=== PATIENT | female | born 1935 | race Caucasian/White ===

== ENCOUNTER → 2017-11-10 07:44 | Outpatient (CLI) | payer OTHER, SELFPAY ==
--- NOTE | 2017-11-10 | DI.MG.S_ITS ---
BILATERAL DIGITAL SCREENING MAMMOGRAM 3D/2D WITH CAD: 11/10/2017 CLINICAL: Routine screening. Comparison is made to exams dated: 10/22/2016 mammogram, 10/09/2015 mammogram, and 10/03/2014 mammogram - [facility]. There are scattered fibroglandular elements in both breasts. Current study was also evaluated with a Computer Aided Detection (CAD) system. No significant masses, calcifications, or other findings are seen in either breast. There has been no significant interval change. IMPRESSION: NEGATIVE There is no mammographic evidence of malignancy. A 1 year screening mammogram is recommended. This exam was interpreted at Station ID: [id number]. NOTE: For mammograms, a report in lay terms will be sent to the patient. Approximately 15% of breast malignancies will not be visualized mammographically. In the management of a palpable breast mass, a negative mammogram must not discourage biopsy of a clinically suspicious lesion. Electronically Signed By: Eh oliva/arturo:11/10/2017 16:29:05 letter sent: Normal Exam ACR BI-RADS Category 1: Negative 3341F
== END ==
PROVIDERS: Family Provider Family Medicine; PCP Family Medicine; Visit Provider Family Medicine
DX: Z12.31 Encounter for screening mammogram for malignant neoplasm of breast (principal)
CPT/HCPCS: 77063; 77067

== ENCOUNTER → 2017-11-18 07:42 | Outpatient (CLI) | payer OTHER, SELFPAY ==
[2017-11-18 09:04] LABS: Add Manual Diff / Slide Review NO; Basophils Percent Auto 0.7 % (0-2); Hematocrit 40.3 % (36-46); Hemoglobin 13.4 g/dL (12.0-16.0); Lymphocytes Percent Auto 12.3 % (25-40); Mean Corpuscular HGB Conc 33.3 % (30-36); Mean Corpuscular Hemoglobin 29.8 PG (26-34); Mean Corpuscular Volume 89.4 fL (80-100); Monocytes Percent Auto 5.3 % (3-14); Neutrophils Absolute Auto 5000 /uL (3000-5900); Neutrophils Percent Auto 80.7 % (50-75); Platelet Count 197 X10^3/uL (150-400); Red Blood Cell Count 4.51 X10^6/uL (4.0-5.2); Red Cell Distribution Width 13.2 % (11.6-14.8); White Blood Cell Count 6.1 X10^3/uL (4.5-11.0)
[2017-11-18 09:45] LABS: Alanine Aminotransferase 14 IU/L (9-52); Albumin 4.6 g/dL (3.5-5.0); Albumin Globulin Ratio 1.3 (1.0-2.8); Alkaline Phosphatase 63 U/L (38-126); Aspartate Aminotransferase 22 IU/L (14-36); BUN Creatinine Ratio 23.3 (6-22); Bilirubin Total 0.9 mg/dL (0.2-1.3); Blood Urea Nitrogen 14 mg/dL (7-17); Carbon Dioxide 31 mmol/L (22-32); Chloride 101 mmol/L (98-107); Cholesterol 188 mg/dL (140-199); Estimated Glomerular Filt Rate > 60.0 mL/min (>60); Globulin 3.5 g/dL (1.7-4.1); Glucose 89 mg/dL (80-110); HDL Cholesterol 61 mg/dL (40-60); HEMOLYSIS < 15 (0-50); LDL Cholesterol Calculated 88 mg/dL (<100); Potassium 3.4 mmol/L (3.4-5.1); Sodium 144 mmol/L (137-145); Total Protein 8.1 g/dL (6.3-8.2); Triglycerides 197 mg/dL (35-150)
[2017-11-18 10:19] LABS: TSH w/ Reflex to FT4 2.39 uIU/mL (0.47-4.68)
== END ==
PROVIDERS: Family Provider Family Medicine; PCP Family Medicine; Visit Provider Family Medicine
DX: E78.5 Hyperlipidemia, unspecified (principal); K52.832 Lymphocytic colitis; M81.0 Age-related osteoporosis without current pathological fracture; I10 Essential (primary) hypertension
CPT/HCPCS: 36415; 80053; 80061; 84443; 85025

== ENCOUNTER → 2018-01-30 09:29 | Outpatient (CLI) | payer OTHER, SELFPAY ==
--- NOTE | 2018-01-30 11:16 | PM.TREADMILL ---
Cardiac Stress Test Report Referral & Results Date Patient Seen: 01/30/18 Time Patient Seen: 11:17 Requesting provider: Lynn Hanson Rest ECG: Unremarkable Procedure Note: Today following both written and verbal informed consent, the patient was exercised according to a standard Ernst protocol. The patient exercised for a total of 6 min 0 sec achieving a maximum heart rate of 129. Patient's maximum systolic blood pressure was 180. This was an estimated 7.0 MET's. There are no ST segment changes identified Normal heart rate and blood pressure response to exercise Functional aerobic impairment is off the scale by estimated at-25% on the active scale or 125% and normal Rare PACs were identified in the recovery portion of the test Impression: No evidence of ischemia. Excellent exercise capacity. Please note: Actual ECG tracings can be found in the PACS system.
== END ==
PROVIDERS: Family Provider Family Medicine; PCP Family Medicine; Visit Provider Nurse Practitioner Family
DX: R07.9 Chest pain, unspecified (principal)
CPT/HCPCS: 93016; 93017; 93018

== ENCOUNTER 2018-02-03 06:40 | Day surgery (SDC) | payer OTHER, SELFPAY ==
[2018-02-03] MEDS: PROPARACAINE 0.5% OPHTH SOL 2 DROPS EYE-OP (07:20)
[2018-02-03 07:23] VITALS: BP 158/88; PULSE 66; RESP 16; TEMP 36.1; O2SAT 100; BMI 18.0
[2018-02-03] MEDS: CATARACT EYE COMPOUND (10 DROPS/SYRINGE) 3 DROPS EYE-OP (07:26)
--- NOTE | 2018-02-03 08:29 | P.OP.PRE_ITS ---
Pre-operative Note Interval Note Changes: No
--- NOTE | 2018-02-03 08:29 | PM.PREOP ---
Pre-operative Note Interval Note Changes: No
--- NOTE | 2018-02-03 08:30 | P.OP_ITS ---
Operative Date/Time/Diagnoses Pre-op diagnosis: Cataract Right eye Post-op diagnosis: same Procedure & Clinicians Procedure: Cataract Surgery Same procedure as scheduled: Yes Surgeon: Jeff Keane Anesthesia Type: MAC +/- and Sedation Operative Notes Procedure in detail: Patient brought to the operating suite. Tetracaine drops placed in the right eye. Patient was prepped and draped in sterile manner. Wire lid speculum was placed in the eye. Betadine drops were placed on the eye. This was irrigated. Lidocaine jelly was placed on the eye. A paracentesis port was created with a side-port blade. 0.1 mL 1% preservative free lidocaine was injected into the anterior chamber. The anterior chamber was deepened with viscoelastic. 2.6 mm keratome was used to create a temporal clear corneal incision. Cystotome and Utrata forceps were used to create continuous tear capsulorrhexis. Balanced salt solution was used to hydro dissect the nucleus. The phacoemulsification handpiece was inserted and the nucleus was removed using the stop and chop technique. The irrigation aspiration handpiece was inserted and the remaining cortex was removed. Anterior chamber was deepened with viscoelastic. An Garcia ZCB00 intraocular lens with a power of 24.5 was injected into the capsular bag. Irrigation aspiration handpiece was inserted and the remaining viscoelastic was removed. Incision was hydrated with balanced salt solution and found to be leak free with pressure with Weck- Katie sponges. 0.1 mL Vigamox injected anterior chamber. 0.3 mL Kenalog 10 mg was injected subconjunctivally. Lid speculum was removed. The patient left the operating room in excellent condition. Complications: none Condition: stable Disposition: same day surgery
[2018-02-03] MEDS: CHONDROIDTIN/SOD HYALURONATE 1.05 ML SYRINGE INTRAOCULA (08:41)
[2018-02-03] MEDS: TRIAMCINOLONE 50 MG/5 ML VIAL INJ (08:41)
[2018-02-03] MEDS: PHENYLEPHRINE/LIDOCAINE VIAL (OR) 0.2 ML EYE-OP (08:41)
[2018-02-03] MEDS: LIDOCAINE JELLY 2% 5 ML 1 APPLIC TOP (08:41)
[2018-02-03] MEDS: MOXIFLOXACIN OPHTH DROPS 3 ML BOTTLE 2 DROPS INJ (08:41)
[2018-02-03] MEDS: TETRACAINE 0.5% OPHTH DROPS 15 ML 2 DROPS EYE-RIGHT (08:41)
[2018-02-03] MEDS: BALANCED SALT IRRIG SOLN NO.2 500 ML, EPINEPHrine 1 MG IRR (08:42)
[2018-02-03 09:02] VITALS: BP 121/69; PULSE 58; RESP 18; TEMP 36.5; O2SAT 99
[2018-02-03 09:18] VITALS: BP 127/66; PULSE 57; RESP 16; O2SAT 99
--- NOTE | 2018-02-03 09:25 | SUR.PHASEII ---
pt states she understands d/c instructions talked to her ride on the phone. making sure someone will check on her at home. Pt states she understands d/c instructions and also recalled what RN stated and was able to say all the things she needed to do when she gets home. pt had water. Pt wheeled out to car by [employer].
== END 2018-02-03 09:25 | disposition home or self-care (01) ==
PROVIDERS: Family Provider Family Medicine; PCP Family Medicine; Visit Provider Ophthalmology
DX: H25.11 Age-related nuclear cataract, right eye (principal); I10 Essential (primary) hypertension
CPT/HCPCS: J0171; J2250; J3010; J3301

== ENCOUNTER 2018-05-05 07:10 | Day surgery (SDC) | payer OTHER, SELFPAY ==
[2018-05-05 08:02] VITALS: BP 156/80; PULSE 60; RESP 16; TEMP 36.3; O2SAT 100; BMI 17.6
[2018-05-05] MEDS: PROPARACAINE 0.5% OPHTH SOL 2 DROPS EYE-OP (08:11)
[2018-05-05] MEDS: CATARACT EYE COMPOUND (10 DROPS/SYRINGE) 3 DROPS EYE-OP (08:16)
--- NOTE | 2018-05-05 09:09 | P.OP.PRE_ITS ---
Pre-operative Note Interval Note Changes: No
--- NOTE | 2018-05-05 09:09 | PM.PREOP ---
Pre-operative Note Interval Note Changes: No
--- NOTE | 2018-05-05 09:10 | P.OP_ITS ---
Operative Date/Time/Diagnoses Pre-op diagnosis: Nuclear Cataract Left eye Post-op diagnosis: same Procedure & Clinicians Surgeon: Jeff Keane Anesthesia Type: MAC +/- and Sedation Operative Notes Procedure in detail: Patient brought to the operating suite. Tetracaine drops placed in the left eye. Patient was prepped and draped in sterile manner. Wire lid speculum was placed in the eye. Betadine drops were placed on the eye. This was irrigated. Lidocaine jelly was placed on the eye. A paracentesis port was created with a side-port blade. 0.1 mL 1% preservative free lidocaine was injected into the anterior chamber. The anterior chamber was deepened with viscoelastic. 2.6 mm keratome was used to create a temporal clear corneal incision. Cystotome and Utrata forceps were used to create continuous tear capsulorrhexis. Balanced salt solution was used to hydro dissect the nucleus. The phacoemulsification handpiece was inserted and the nucleus was removed using the stop and chop technique. The irrigation aspiration handpiece was inserted and the remaining cortex was removed. Anterior chamber was deepened with viscoelastic. An Garcia ZCB00 intraocular lens with a power of 25.5 was injected into the capsular bag. Irrigation aspiration handpiece was inserted and the remaining viscoelastic was removed. Incision was hydrated with balanced salt solution and found to be leak free with pressure with Weck- Katie sponges. 0.1 mL Vigamox injected anterior chamber. 0.3 mL Kenalog 10 mg was injected subconjunctivally. Lid speculum was removed. The patient left the operating room in excellent condition. Complications: none Condition: stable Disposition: same day surgery
[2018-05-05] MEDS: PHENYLEPHRINE/LIDOCAINE VIAL (OR) 0.2 ML EYE-OP (09:28)
[2018-05-05] MEDS: MOXIFLOXACIN OPHTH DROPS 3 ML BOTTLE 2 DROPS INJ (09:28)
[2018-05-05] MEDS: BALANCED SALT IRRIG SOLN NO.2 500 ML, EPINEPHrine 1 MG IRR (09:29)
[2018-05-05] MEDS: LIDOCAINE JELLY 2% 5 ML 1 APPLIC TOP (09:29)
[2018-05-05] MEDS: TRIAMCINOLONE 50 MG/5 ML VIAL INJ (09:29)
[2018-05-05] MEDS: CHONDROIDTIN/SOD HYALURONATE 1.05 ML SYRINGE INTRAOCULA (09:29)
[2018-05-05] MEDS: TETRACAINE 0.5% OPHTH DROPS 15 ML 2 DROPS EYE-LEFT (09:30)
[2018-05-05 09:41] VITALS: BP 122/71; PULSE 60; RESP 15; TEMP 36.2; O2SAT 100
== END 2018-05-05 09:59 ==
LOC: OR 07:15
PROVIDERS: Family Provider Family Medicine; PCP Family Medicine; Visit Provider Ophthalmology
DX: I10 Essential (primary) hypertension (principal)
CPT/HCPCS: J0171; J2250; J3010; J3301

== ENCOUNTER → 2018-11-11 10:16 | Outpatient (CLI) | payer OTHER, SELFPAY ==
--- NOTE | 2018-11-11 | DI.MG.S_ITS ---
BILATERAL DIGITAL SCREENING MAMMOGRAM 3D/2D WITH CAD: 11/11/2018 CLINICAL: Routine screening. Comparison is made to exams dated: 10/22/2016 mammogram, 11/10/2017 mammogram, and 10/09/2015 mammogram - [facility]. There are scattered fibroglandular elements in both breasts. Current study was also evaluated with a Computer Aided Detection (CAD) system. No significant masses, calcifications, or other findings are seen in either breast. There has been no significant interval change. IMPRESSION: NEGATIVE There is no mammographic evidence of malignancy. A 1 year screening mammogram is recommended. This exam was interpreted at Station ID: [id number]. NOTE: For mammograms, a report in lay terms will be sent to the patient. Approximately 15% of breast malignancies will not be visualized mammographically. In the management of a palpable breast mass, a negative mammogram must not discourage biopsy of a clinically suspicious lesion. Electronically Signed By: Eh oliva/arturo:11/11/2018 11:51:01 letter sent: Normal Exam ACR BI-RADS Category 1: Negative 3341F
== END ==
PROVIDERS: Family Provider Family Medicine; PCP Family Medicine; Visit Provider Family Medicine
DX: Z12.31 Encounter for screening mammogram for malignant neoplasm of breast (principal)
CPT/HCPCS: 77063; 77067

== ENCOUNTER → 2018-12-21 07:09 | Outpatient (CLI) | payer OTHER, SELFPAY ==
[2018-12-21 08:37] LABS: Add Manual Diff / Slide Review NO; Basophils Absolute Auto 100 /uL (0-100); Eosinophils Absolute Auto 200 /uL (0-450); Eosinophils Percent Auto 2.8 % (2-4); Hematocrit 37.7 % (36-46); Hemoglobin 12.5 g/dL (12.0-16.0); Lymphocytes Absolute Auto 900 /uL (1100-4500); Lymphocytes Percent Auto 14.7 % (25-40); Mean Corpuscular HGB Conc 33.1 % (30-36); Mean Corpuscular Hemoglobin 28.9 PG (26-34); Mean Corpuscular Volume 87.3 fL (80-100); Monocytes Absolute Auto 300 /uL (0-900); Monocytes Percent Auto 5.7 % (3-14); Neutrophils Absolute Auto 4500 /uL (1500-7000); Neutrophils Percent Auto 75.8 % (50-75); Platelet Count 207 X10^3/uL (150-400); Red Blood Cell Count 4.31 X10^6/uL (4.0-5.2); Red Cell Distribution Width 14.3 % (11.6-14.8); White Blood Cell Count 5.9 X10^3/uL (4.5-11.0)
[2018-12-21 08:55] LABS: Albumin 4.3 g/dL (3.5-5.0); Albumin Globulin Ratio 1.2 (1.0-2.8); Alkaline Phosphatase 71 U/L (38-126); Aspartate Aminotransferase 25 IU/L (14-36); BUN Creatinine Ratio 18.3 (6-22); Bilirubin Total 0.5 mg/dL (0.2-1.3); Blood Urea Nitrogen 11 mg/dL (7-17); Calcium 10.1 mg/dL (8.4-10.2); Carbon Dioxide 31 mmol/L (22-32); Chloride 101 mmol/L (98-107); Cholesterol 176 mg/dL (140-199); Estimated Glomerular Filt Rate > 60.0 mL/min (>60); Globulin 3.7 g/dL (1.7-4.1); Glucose 97 mg/dL (80-110); HDL Cholesterol 57 mg/dL (40-60); HEMOLYSIS < 15 (0-50); LDL Cholesterol Calculated 90 mg/dL (<100); Sodium 139 mmol/L (137-145); Triglycerides 145 mg/dL (35-150)
[2018-12-21 09:13] LABS: Alanine Aminotransferase < 6 IU/L (9-52)
[2018-12-21 09:24] LABS: TSH w/ Reflex to FT4 3.29 uIU/mL (0.47-4.68)
== END ==
PROVIDERS: Family Provider Family Medicine; PCP Family Medicine; Visit Provider Family Medicine
DX: E78.5 Hyperlipidemia, unspecified (principal); I10 Essential (primary) hypertension
CPT/HCPCS: 36415; 80053; 80061; 84443; 85025

== ENCOUNTER → 2019-11-18 15:33 | Outpatient (CLI) | payer MEDICARE, SELFPAY ==
[2019-11-18 16:54] LABS: NT-proBNP (BNP-Adult 18+) 361 pg/mL (<450)
== END ==
PROVIDERS: Family Provider Family Medicine; PCP Family Medicine; Referring Provider Physician Assistant; Visit Provider Physician Assistant
DX: R60.9 Edema, unspecified (principal)
CPT/HCPCS: 36415; 83880

== ENCOUNTER → 2020-02-24 07:48 | Outpatient (CLI) | payer MEDICARE, SELFPAY ==
--- NOTE | 2020-02-24 | DI.MG.S_ITS ---
BILATERAL DIGITAL SCREENING MAMMOGRAM 3D/2D WITH CAD: 02/24/2020 CLINICAL: Routine screening. Comparison is made to exams dated: 11/11/2018 mammogram, 11/10/2017 mammogram, and 10/22/2016 mammogram - [facility]. There are scattered fibroglandular elements in both breasts. Current study was also evaluated with a Computer Aided Detection (CAD) system. No significant masses, calcifications, or other findings are seen in either breast. There has been no significant interval change. IMPRESSION: NEGATIVE There is no mammographic evidence of malignancy. A 1 year screening mammogram is recommended. This exam was interpreted at Station ID: [id number]. NOTE: For mammograms, a report in lay terms will be sent to the patient. Approximately 15% of breast malignancies will not be visualized mammographically. In the management of a palpable breast mass, a negative mammogram must not discourage biopsy of a clinically suspicious lesion. Electronically Signed By: Ke singletary/arturo:02/24/2020 11:59:44 letter sent: Normal Exam ACR BI-RADS Category 1: Negative 3341F
== END ==
PROVIDERS: Family Provider Family Medicine; PCP Family Medicine; Referring Provider Family Medicine; Visit Provider Family Medicine
DX: Z12.31 Encounter for screening mammogram for malignant neoplasm of breast (principal)
CPT/HCPCS: 77063; 77067

== ENCOUNTER 2020-04-10 17:00 | Emergency (ER) | payer MEDICARE, SELFPAY ==
[2020-04-10] VITALS (11 sets, daily range): BP systolic 118–153; BP diastolic 55–82; PULSE 60–87; RESP 16–37; TEMP 37.3; O2SAT 90–99
--- NOTE | 2020-04-10 17:27 | DI.RAD.S_ITS ---
PROCEDURE: XR CHEST 1V INDICATIONS: fever, cough TECHNIQUE: One view of the chest was acquired. COMPARISON: None. FINDINGS: Surgical changes and devices: None. Lungs and pleura: Lungs are clear. No pleural effusions or pneumothorax. Mediastinum: Mediastinal contours appear normal. Heart size is normal. Bones and chest wall: No suspicious bony lesions. Overlying soft tissues appear unremarkable. IMPRESSION: No acute intracranial abnormality. Dictated by: Sloan Byrd M.D. on 04/10/2020 at 18:02 Approved by: Sloan Byrd M.D. on 04/10/2020 at 18:03
--- NOTE | 2020-04-10 17:35 | ED.FEVER ---
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 and influenza swab were negative for any concerning findings. Please call Dr. Quinones tomorrow to schedule an appointment given your low potassium. Return emergency department for any new or worsening symptoms. Prescriptions: No Action olopatadine [Patanol] 0.1 % drops 1 drop EYE-BOTH BID Qty: 5 RF: 0 estradiol [Estrace] 0.01 % (0.1 mg/gram) cream 1 gram VAG DAILY Qty: 42.5 RF: 1 triamcinolone acetonide 0.1 % cream 1 applictn TOP BID Qty: 30 RF: 0 CA PANTOTHENATE/FOLIC ACID/VIT (MULTIVITAMIN) 1 tab PO BID Qty: 0 RF: 0 CALCIUM CARBONATE (#CALCIUM) 600 mg PO BID Qty: 0 RF: 0 Fish Oil (#FISH OIL) 1 iu PO WEEKLY Qty: 0 RF: 0 Iron (#CHEW-IRON) 27 mg PO DAILY Qty: 0 RF: 0 melatonin 5 MG tablet 5 mg PO HSP PRN (Reason: Sleep) Qty: 0 RF: 0 acetaminophen [Tylenol Extra Strength] 500 MG tablet 500 mg PO PRN PRN (Reason: Pain) Qty: 0 RF: 0 cholecalciferol (vitamin D3) [Vitamin D3] 1,000 UNIT tablet 1,000 unit PO QDAY Qty: 0 RF: 0 loperamide 2 mg tablet 2 mg PO Q2-4H PRN (Reason: Diarrhea) RF: 0 amlodipine 2.5 mg tablet 2.5 mg PO DAILY Qty: 180 RF: 3 lovastatin 40 mg tablet 60 mg PO BEDTIME Qty: 135 RF: 1 hydrochlorothiazide 25 mg tablet 12.5 mg PO DAILY Qty: 30 RF: 3 lisinopril 40 mg tablet 40 mg PO BID Qty: 180 RF: 3 mesalamine 1.2 gram tablet,delayed release (DR/EC) 1.2 g PO TID RF: 0 Referrals: Michele Quinones MD [Primary Care Provider] - <Chandler Crawley DO - Last Filed: 04/10/20 20:47> [facility]: Dr Crawley Co-Sign Statement: I was available for consultation during this patient's emergency department visit. This chart is signed by myself for administrative purposes only. I did not have direct contact with this patient during this visit. They were seen independently by the APC.
[2020-04-10 17:54] LABS: Add Manual Diff / Slide Review NO; Basophils Absolute Auto 0 /uL (0-100); Basophils Percent Auto 0.3 % (0-2); Eosinophils Absolute Auto 300 /uL (0-450); Eosinophils Percent Auto 3.5 % (2-4); Hematocrit 33.7 % (36-46); Hemoglobin 11.2 g/dL (12.0-16.0); Lymphocytes Absolute Auto 500 /uL (1100-4500); Lymphocytes Percent Auto 5.7 % (25-40); Mean Corpuscular HGB Conc 33.4 % (30-36); Mean Corpuscular Hemoglobin 29.4 PG (26-34); Mean Corpuscular Volume 88.1 fL (80-100); Monocytes Absolute Auto 700 /uL (0-900); Monocytes Percent Auto 8.1 % (3-14); Neutrophils Absolute Auto 7100 /uL (1500-7000); Neutrophils Percent Auto 82.4 % (50-75); Platelet Count 194 X10^3/uL (150-400); Red Blood Cell Count 3.82 X10^6/uL (4.0-5.2); Red Cell Distribution Width 13.6 % (11.6-14.8); White Blood Cell Count 8.6 X10^3/uL (4.5-11.0)
[2020-04-10 18:00] LABS: INR 1.2 (0.9-1.3); Prothrombin Time 13.2 SECONDS (10.1-12.7)
[2020-04-10 18:03] LABS: PTT Partial Thromboplastin Tim 31 SECONDS (26.4-36.2)
[2020-04-10 18:05] LABS: Lactate (Lactic Acid) 0.9 mmol/L (0.7-2.1)
[2020-04-10 18:06] LABS: Alanine Aminotransferase 31 IU/L (<35); Albumin 4.1 g/dL (3.5-5.0); Albumin Globulin Ratio 1.1 (1.0-2.8); Alkaline Phosphatase 79 U/L (38-126); Aspartate Aminotransferase 76 IU/L (14-36); BUN Creatinine Ratio 18.3 (6-22); Bilirubin Total 0.9 mg/dL (0.2-1.3); Blood Urea Nitrogen 13 mg/dL (7-17); Calcium 9.5 mg/dL (8.4-10.2); Carbon Dioxide 33 mmol/L (22-32); Chloride 94 mmol/L (98-107); Estimated Glomerular Filt Rate > 60.0 mL/min (>60); Globulin 3.6 g/dL (1.7-4.1); Glucose 113 mg/dL (80-110); HEMOLYSIS < 15 (0-50); Potassium 2.8 mmol/L (3.4-5.1); Sodium 132 mmol/L (137-145); Total Protein 7.7 g/dL (6.3-8.2)
[2020-04-10 18:25] LABS: Influenza A - CEPHEID Flu A NEGATIVE (NEGATIVE); Influenza B - CEPHEID Flu B NEGATIVE (NEGATIVE)
[2020-04-10] MEDS: POTASSIUM CHLORIDE 20 MEQ/15 ML UDC 40 MEQ PO (18:40)
[2020-04-10] MEDS: POTASSIUM CHLORIDE 20 MEQ in SODIUM CHLORIDE 0.9% 250 ML 130 ML IV (18:47)
[2020-04-10 18:49] LABS: COVID19 -Nasal RAPID Negative (Negative); Creatine Kinase 45 U/L (30-135)
[2020-04-10 19:01] LABS: Troponin I < 0.012 ng/mL (0.01-0.034)
[2020-04-10 20:22] LABS: Appearance Urine UA CLEAR; Bilirubin Urine UA NEGATIVE (NEGATIVE); Color Urine UA YELLOW; Glucose Urine UA NEGATIVE (Negative); Ketones Urine UA NEGATIVE (NEGATIVE); Leukocyte Esterase Urine UA TRACE (NEGATIVE); Nitrite Urine UA NEGATIVE (Negative); Occult Blood Urine UA 2+ (Negative); Protein Urine UA NEGATIVE (Negative); Specific Gravity Urine UA <=1.005 (1.000-1.035); Urobilinogen Urine UA 0.2 E.U./dL (0.2)
[2020-04-10 20:24] LABS: pH Urine UA 5.5 (4.5-8.0)
[2020-04-10 20:32] LABS: Bacteria Urine Occasional (0-1); RBC Urine 1-5/HPF (0-5/HPF); Squamous Epithelial Cell Urine 1-5 /HPF (0-5/HPF); WBC Urine 5-10/HPF (0-5/HPF)
[2020-04-10 20:33] LABS: Culture Indicated Urine Specimen Cultured
== END 2020-04-10 21:22 | disposition home or self-care (01) ==
PROVIDERS: Emergency Provider Nurse Practitioner; Family Provider Family Medicine; PCP Family Medicine
DX: E87.6 Hypokalemia (principal); R53.83 Other fatigue; R50.9 Fever, unspecified; R05 Cough
CPT/HCPCS: 36415; 71045; 80053; 81001; 81003; 82550; 83605; 83735; 84484; 85025; 85610; 85730; 87086; 87502; 87635; 93005; 96365; 96366; 99284; J3480

== ENCOUNTER → 2020-04-13 07:55 | Outpatient (CLI) | payer MEDICARE, SELFPAY ==
[2020-04-13 10:25] LABS: BUN Creatinine Ratio 12.5 (6-22); Blood Urea Nitrogen 9 mg/dL (7-17); Calcium 9.6 mg/dL (8.4-10.2); Carbon Dioxide 38 mmol/L (22-32); Chloride 88 mmol/L (98-107); Estimated Glomerular Filt Rate > 60.0 mL/min (>60); Glucose 113 mg/dL (80-110); HEMOLYSIS < 15 (0-50); Potassium 3.2 mmol/L (3.4-5.1); Sodium 131 mmol/L (137-145)
== END ==
PROVIDERS: Family Provider Family Medicine; PCP Family Medicine; Referring Provider Family Medicine; Visit Provider Family Medicine
DX: E87.6 Hypokalemia (principal)
CPT/HCPCS: 36415; 80048

== ENCOUNTER → 2020-04-17 12:28 | Outpatient (CLI) | payer MEDICARE, SELFPAY ==
[2020-04-17 13:58] LABS: BUN Creatinine Ratio 13.9 (6-22); Blood Urea Nitrogen 10 mg/dL (7-17); Calcium 9.6 mg/dL (8.4-10.2); Carbon Dioxide 31 mmol/L (22-32); Chloride 91 mmol/L (98-107); Estimated Glomerular Filt Rate > 60.0 mL/min (>60); Glucose 139 mg/dL (80-110); HEMOLYSIS < 15 (0-50); Potassium 4.5 mmol/L (3.4-5.1); Sodium 129 mmol/L (137-145)
== END ==
PROVIDERS: Family Provider Family Medicine; PCP Family Medicine; Referring Provider Family Medicine; Visit Provider Family Medicine
DX: E87.1 Hypo-osmolality and hyponatremia (principal); E87.6 Hypokalemia
CPT/HCPCS: 36415; 80048

== ENCOUNTER → 2020-04-27 08:23 | Outpatient (CLI) | payer MEDICARE, SELFPAY ==
[2020-04-27 09:56] LABS: BUN Creatinine Ratio 13.1 (6-22); Blood Urea Nitrogen 11 mg/dL (7-17); Calcium 10.1 mg/dL (8.4-10.2); Carbon Dioxide 32 mmol/L (22-32); Chloride 88 mmol/L (98-107); Estimated Glomerular Filt Rate > 60.0 mL/min (>60); Glucose 122 mg/dL (80-110); HEMOLYSIS < 15 (0-50); Potassium 5.3 mmol/L (3.4-5.1); Sodium 124 mmol/L (137-145)
== END ==
PROVIDERS: Family Provider Family Medicine; PCP Family Medicine; Referring Provider Family Medicine; Visit Provider Family Medicine
DX: E87.1 Hypo-osmolality and hyponatremia (principal); E87.6 Hypokalemia
CPT/HCPCS: 36415; 80048

== ENCOUNTER → 2020-05-11 09:22 | Outpatient (CLI) | payer MEDICARE, SELFPAY ==
[2020-05-11 10:30] LABS: BUN Creatinine Ratio 16.9 (6-22); Blood Urea Nitrogen 13 mg/dL (7-17); Calcium 10.3 mg/dL (8.4-10.2); Carbon Dioxide 31 mmol/L (22-32); Chloride 91 mmol/L (98-107); Estimated Glomerular Filt Rate > 60.0 mL/min (>60); Glucose 93 mg/dL (80-110); HEMOLYSIS < 15 (0-50); Potassium 4.2 mmol/L (3.4-5.1); Sodium 127 mmol/L (137-145)
== END ==
PROVIDERS: Family Provider Family Medicine; PCP Family Medicine; Referring Provider Family Medicine; Visit Provider Family Medicine
DX: E87.1 Hypo-osmolality and hyponatremia (principal); E87.6 Hypokalemia
CPT/HCPCS: 36415; 80048

== ENCOUNTER → 2020-06-08 07:45 | Outpatient (CLI) | payer MEDICARE, SELFPAY ==
[2020-06-08 08:51] LABS: BUN Creatinine Ratio 19.4 (6-22); Blood Urea Nitrogen 14 mg/dL (7-17); Calcium 9.6 mg/dL (8.4-10.2); Carbon Dioxide 35 mmol/L (22-32); Chloride 99 mmol/L (98-107); Estimated Glomerular Filt Rate > 60.0 mL/min (>60); Glucose 103 mg/dL (80-110); HEMOLYSIS < 15 (0-50); Sodium 137 mmol/L (137-145)
[2020-06-08 09:52] LABS: Potassium 2.6 mmol/L (3.4-5.1)
== END ==
PROVIDERS: Family Provider Family Medicine; PCP Family Medicine; Referring Provider Family Medicine; Visit Provider Family Medicine
DX: E87.1 Hypo-osmolality and hyponatremia (principal); E87.6 Hypokalemia
CPT/HCPCS: 36415; 80048

== ENCOUNTER → 2020-06-10 08:04 | Outpatient (CLI) | payer MEDICARE, SELFPAY ==
[2020-06-10 09:49] LABS: BUN Creatinine Ratio 19.7 (6-22); Blood Urea Nitrogen 13 mg/dL (7-17); Calcium 9.7 mg/dL (8.4-10.2); Carbon Dioxide 31 mmol/L (22-32); Chloride 103 mmol/L (98-107); Estimated Glomerular Filt Rate > 60.0 mL/min (>60); Glucose 94 mg/dL (80-110); HEMOLYSIS < 15 (0-50); Sodium 138 mmol/L (137-145)
== END ==
PROVIDERS: Family Provider Family Medicine; PCP Family Medicine; Referring Provider Family Medicine; Visit Provider Family Medicine
DX: E87.1 Hypo-osmolality and hyponatremia (principal); E87.6 Hypokalemia
CPT/HCPCS: 36415; 80048

== ENCOUNTER → 2020-06-20 13:09 | Outpatient (CLI) | payer MEDICARE, SELFPAY ==
[2020-06-20] MEDS: COVID-19 VACC #1, MRNA(MOD) 100 MCG/0.5 ML VIAL IM (13:19)
== END ==
PROVIDERS: Family Provider Family Medicine; PCP Family Medicine; Visit Provider Internal Medicine
DX: Z23 Encounter for immunization (principal)
CPT/HCPCS: 0011A; 91301

== ENCOUNTER → 2020-07-12 10:43 | Outpatient (CLI) | payer MEDICARE, SELFPAY ==
[2020-07-12 12:03] LABS: BUN Creatinine Ratio 16.7 (6-22); Blood Urea Nitrogen 16 mg/dL (7-17); Calcium 10.4 mg/dL (8.4-10.2); Carbon Dioxide 30 mmol/L (22-32); Chloride 98 mmol/L (98-107); Estimated Glomerular Filt Rate 55.1 mL/min (>60); Glucose 100 mg/dL (80-110); HEMOLYSIS < 15 (0-50); Potassium 4.8 mmol/L (3.4-5.1); Sodium 134 mmol/L (137-145)
== END ==
PROVIDERS: Family Provider Family Medicine; PCP Family Medicine; Referring Provider Family Medicine; Visit Provider Family Medicine
DX: E87.1 Hypo-osmolality and hyponatremia (principal); E87.6 Hypokalemia
CPT/HCPCS: 36415; 80048

== ENCOUNTER → 2020-07-18 12:42 | Outpatient (CLI) | payer MEDICARE, SELFPAY ==
[2020-07-18] MEDS: COVID-19 VACC #2, MRNA(MOD) 100 MCG/0.5 ML VIAL IM (12:58)
== END ==
PROVIDERS: Family Provider Family Medicine; PCP Family Medicine; Visit Provider Internal Medicine
DX: Z23 Encounter for immunization (principal)
CPT/HCPCS: 0012A; 91301

== ENCOUNTER → 2020-08-09 08:08 | Outpatient (CLI) | payer MEDICARE, SELFPAY ==
[2020-08-09 09:23] LABS: BUN Creatinine Ratio 21.1 (6-22); Blood Urea Nitrogen 19 mg/dL (7-17); Calcium 10.1 mg/dL (8.4-10.2); Carbon Dioxide 27 mmol/L (22-32); Chloride 101 mmol/L (98-107); Estimated Glomerular Filt Rate 59.4 mL/min (>60); Glucose 92 mg/dL (80-110); HEMOLYSIS < 15 (0-50); Potassium 4.3 mmol/L (3.4-5.1); Sodium 135 mmol/L (137-145)
== END ==
PROVIDERS: Family Provider Family Medicine; PCP Family Medicine; Referring Provider Family Medicine; Visit Provider Family Medicine
DX: E87.1 Hypo-osmolality and hyponatremia (principal); E87.6 Hypokalemia
CPT/HCPCS: 36415; 80048

== ENCOUNTER → 2020-10-04 08:04 | Outpatient (CLI) | payer MEDICARE, SELFPAY ==
[2020-10-04 09:55] LABS: BUN Creatinine Ratio 14.9 (6-22); Blood Urea Nitrogen 11 mg/dL (7-17); Calcium 10.2 mg/dL (8.4-10.2); Carbon Dioxide 31 mmol/L (22-32); Chloride 92 mmol/L (98-107); Estimated Glomerular Filt Rate > 60.0 mL/min (>60); Glucose 85 mg/dL (80-110); HEMOLYSIS < 15 (0-50); Potassium 4.1 mmol/L (3.4-5.1); Sodium 130 mmol/L (137-145)
== END ==
PROVIDERS: Family Provider Family Medicine; PCP Family Medicine; Referring Provider Family Medicine; Visit Provider Family Medicine
DX: E87.1 Hypo-osmolality and hyponatremia (principal); E87.6 Hypokalemia
CPT/HCPCS: 36415; 80048

== ENCOUNTER → 2020-11-30 07:53 | Outpatient (CLI) | payer MEDICARE, SELFPAY ==
[2020-11-30 09:20] LABS: BUN Creatinine Ratio 18.8 (6-22); Blood Urea Nitrogen 13 mg/dL (7-17); Calcium 10.3 mg/dL (8.4-10.2); Carbon Dioxide 35 mmol/L (22-32); Chloride 93 mmol/L (98-107); Estimated Glomerular Filt Rate > 60.0 mL/min (>60); Glucose 97 mg/dL (80-110); HEMOLYSIS < 15 (0-50); Potassium 3.2 mmol/L (3.4-5.1); Sodium 134 mmol/L (137-145)
== END ==
PROVIDERS: Family Provider Family Medicine; PCP Family Medicine; Referring Provider Family Medicine; Visit Provider Family Medicine
DX: E87.1 Hypo-osmolality and hyponatremia (principal)
CPT/HCPCS: 36415; 80048

== ENCOUNTER → 2020-12-15 09:21 | Outpatient (CLI) | payer MEDICARE, SELFPAY ==
--- NOTE | 2020-12-15 09:23 | DI.US.S_ITS ---
PROCEDURE: US RENAL COMPLETE INDICATIONS: POSSIBLE KIDNEY MASS VS HYDRONEPHROSIS TECHNIQUE: Real-time scanning was performed of the kidneys and bladder, with image documentation. COMPARISON: [facility], CT, KIDNEY/ URETER/BLADDER, 01/03/2017, 9:07. [facility], US, RENAL COMPLETE, 12/18/2016, 13:24. FINDINGS: Kidneys: Kidneys are normal in size. Right kidney measures 10.2 cm long; left kidney measures 11.2 cm long. Right renal cortical thickness is 1.4 cm; left renal cortical thickness is 1.2 cm. Renal cortical echotexture is normal. No hydronephrosis or nephrolithiasis. No suspicious solid mass lesions. Bladder: Pre-void bladder volume is 319 mL. Post-void residual is 15 mL. Pre-void images demonstrate no intraluminal masses or stones. On pre-void images, bilateral ureteral jets are noted with color Doppler interrogation. (Of note, ureteral jets may not be detectable in up to 25% of cases due to insufficient differences in specific gravity between ureteral and bladder urine). Miscellaneous: No free pelvic fluid. IMPRESSION: No hydronephrosis or nephrolithiasis found, no mass lesion identified. Normal bladder function. Dictated by: Yrn Angeles M.D. on 12/15/2020 at 11:10 Approved by: Yrn Angeles M.D. on 12/15/2020 at 11:11
== END ==
PROVIDERS: Family Provider Family Medicine; PCP Family Medicine; Referring Provider Family Medicine; Visit Provider Family Medicine
DX: E87.1 Hypo-osmolality and hyponatremia (principal); E87.6 Hypokalemia; I10 Essential (primary) hypertension
CPT/HCPCS: 76770

== ENCOUNTER → 2021-01-01 10:20 | Outpatient (CLI) | payer MEDICARE, SELFPAY | PROVIDERS: Family Provider Family Medicine; PCP Family Medicine; Referring Provider Internal Medicine Cardiovascular Disease; Visit Provider Family Medicine | DX: E87.1 Hypo-osmolality and hyponatremia (principal); E87.6 Hypokalemia; I10 Essential (primary) hypertension; R42 Dizziness and giddiness | CPT/HCPCS: 93005 ==

== ENCOUNTER → 2021-01-08 07:09 | Outpatient (CLI) | payer MEDICARE, SELFPAY ==
--- NOTE | 2021-01-08 07:10 | DI.ECHO.S_ITS ---
[facility] +---------+ : : [address] [place] [address] : : : : [id number] : : : : Phone: [phone]+ Echocardiogram Report + + :Name: TIFFANY LAKHANI Study Date: 01/08/2021 Height: 67 in : :[facility] ReadingLocation: Weight: 125 lb : : Gender: Female BSA: 1.7 m2 : :: 1935 Age: 85 yrs BP: 155/88 mmHg: :Reason For Study: PRE CARDIAC APPOINTMENT, HYPERTENSION : :Ordering Physician: SCOT VANEGASPerformed By: Aleah Mayo : :Referring: SHADE VANEGAS : + + Interpretation Summary 1) Normal left ventricular size, thickness, wall motion, and systolic function (EF 55-60%). 2) Normal right ventricular size and function. 3) No significant valvular abnormalities. 4) No prior Echo available for comparison. Procedure: A two-dimensional transthoracic echocardiogram with color flow and Doppler was performed. The study quality was technically adequate. There is no prior echocardiogram noted for this patient. The patient was in sinus rhythm with heart rates between 61-67 bpm during the exam. Left Ventricle: The left ventricle is normal in size and wall thickness. The ejection fraction is estimated to be 55-60%. Left ventricular systolic function appears normal without focal wall motion abnormalities. Right Ventricle: The right ventricle is normal in size and function. Atria: The left atrial size is normal. Right atrial size is normal. There is no Doppler evidence for an interatrial shunt. Mitral Valve: The mitral valve is normal in structure and function. There is mild mitral regurgitation. Aortic Valve: The aortic valve is trileaflet. The aortic valve opens well. There is no aortic valve stenosis. No aortic regurgitation is present. Tricuspid Valve: The tricuspid valve is normal in structure and function. There is trace tricuspid regurgitation. The right ventricular systolic pressure is estimated to be at least 20 mmHg based on an estimated right atrial pressure of 3 mm Hg. Pulmonic Valve: The pulmonic valve leaflets are thin and pliable; valve motion is normal. There is trace pulmonic regurgitation. Great Vessels: The aortic root is normal size. The dimensions of the ascending aorta are normal. The IVC is of normal diameter and collapses greater than 50% with a sniff. This suggests a low right atrial pressure of 3 mm Hg. Pericardium/ Pleura There is no pericardial effusion. There is no pleural effusion. MMode/2D Measurements & Calculations LVIDd: 4.6 cm LVOT diam: 2.0 cm LVIDs: 3.1 cm Ao root diam: 2.6 cm FS: 34.2 % asc Aorta Diam: 3.3 cm IVSd: 0.64 cm Ao Arch Diam (Prox Trans): 2.4 cm LVPWd: 0.78 cm LV hickey. diameter/BSA (cm/m^2): 2.8 LV sys. diameter/BSA (cm/m^2): 1.8 LA A2 area: 16.8 cm2 RA long axis: 4.4 cm LA A4 area: 16.7 cm2 RA area: 11.3 cm2 LA length (vol): 5.2 cm RA vol: 24.7 ml LA vol: 46.1 ml RA : 14.9 ml/m2 LA vol index: 27.8 ml/m2 IVC diam: 1.3 cm RVD1 (basal): 3.3 cm TAPSE: 1.9 cm Doppler Measurements & Calculations Ao V2 max: 129.8 cm/sec LVOT Max Fredo: 86.9 cm/sec Ao V2 mean: 90.9 cm/sec LV V1 max P.0 mmHg Ao max P.7 mmHg LV V1 VTI: 20.2 cm Ao mean P.7 mmHg LUAN(I,D): 2.5 cm2 Ao V2 VTI: 25.2 cm LUAN(V,D): 2.1 cm2 sev ratio: 0.80 LUAN indexed to BSA (cm^2/m^2): 1.5 MV E max fredo: 49.9 cm/sec TR max fredo: 206.1 cm/sec MV A max fredo: 72.3 cm/sec TR max P.0 mmHg MV E/A: 0.69 PA V2 max: 93.0 cm/sec Med Peak E' Fredo: 5.3 cm/sec PA V2 mean: 63.5 cm/sec E/E' med: 9.4 PA mean P.8 mmHg Lat Peak E' Fredo: 4.5 cm/sec PA pr(Accel): 34.5 mmHg E/E' lat: 11.2 E/e' average: 10.3 MV dec time: 0.35 sec SV(LVOT): 64.2 ml Reading Physician:06:22 PM
== END ==
PROVIDERS: Family Provider Family Medicine; PCP Family Medicine; Referring Provider Family Medicine; Visit Provider Family Medicine
DX: I34.0 Nonrheumatic mitral (valve) insufficiency (principal); R42 Dizziness and giddiness; E87.1 Hypo-osmolality and hyponatremia; E87.6 Hypokalemia; I10 Essential (primary) hypertension
CPT/HCPCS: 93306

== ENCOUNTER → 2021-01-23 10:48 | Outpatient (CLI) | payer MEDICARE, SELFPAY ==
[2021-01-23 12:13] LABS: BUN Creatinine Ratio 22.1 (6-22); Blood Urea Nitrogen 15 mg/dL (7-17); Calcium 10.5 mg/dL (8.4-10.2); Carbon Dioxide 30 mmol/L (22-32); Chloride 97 mmol/L (98-107); Estimated Glomerular Filt Rate > 60.0 mL/min (>60); Glucose 97 mg/dL (80-110); HEMOLYSIS < 15 (0-50); Potassium 4.6 mmol/L (3.4-5.1); Sodium 134 mmol/L (137-145)
== END ==
PROVIDERS: Family Provider Family Medicine; PCP Family Medicine; Referring Provider Family Medicine; Visit Provider Family Medicine
DX: E87.1 Hypo-osmolality and hyponatremia (principal); E87.6 Hypokalemia
CPT/HCPCS: 36415; 80048

== ENCOUNTER → 2021-02-20 16:30 | Outpatient (CLI) | payer MEDICARE, SELFPAY ==
[2021-02-20 17:00] LABS: Add Manual Diff / Slide Review NO; Basophils Absolute Auto 0 /uL (0-100); Basophils Percent Auto 0.5 % (0-2); Eosinophils Absolute Auto 100 /uL (0-450); Eosinophils Percent Auto 0.7 % (2-4); Hemoglobin 12.4 g/dL (12.0-16.0); Lymphocytes Absolute Auto 900 /uL (1100-4500); Lymphocytes Percent Auto 12.6 % (25-40); Mean Corpuscular HGB Conc 33.4 % (30-36); Mean Corpuscular Hemoglobin 29.7 PG (26-34); Monocytes Absolute Auto 600 /uL (0-900); Monocytes Percent Auto 8.1 % (3-14); Neutrophils Absolute Auto 5700 /uL (1500-7000); Neutrophils Percent Auto 78.1 % (50-75); Platelet Count 260 X10^3/uL (150-400); Red Blood Cell Count 4.15 X10^6/uL (4.0-5.2); Red Cell Distribution Width 13.6 % (11.6-14.8); White Blood Cell Count 7.3 X10^3/uL (4.5-11.0)
[2021-02-20 17:38] LABS: HEMOLYSIS < 15 (0-50); Iron 65 ug/dL (37-170)
[2021-02-20 17:49] LABS: Percent Iron Saturation 21 % (15-50); Total Iron Binding Capacity 310 ug/dL (265-497); Transferrin 301 mg/dL (206-381)
== END ==
PROVIDERS: Family Provider Family Medicine; PCP Family Medicine; Referring Provider Physician Assistant; Visit Provider Physician Assistant
DX: D64.9 Anemia, unspecified (principal); K22.0 Achalasia of cardia; K52.832 Lymphocytic colitis
CPT/HCPCS: 36415; 83540; 83550; 85025

== ENCOUNTER 2021-03-12 07:37 | Emergency (ER) | payer MEDICARE, SELFPAY ==
[2021-03-12] VITALS (13 sets, daily range): BP systolic 142–166; BP diastolic 60–75; PULSE 57–73; RESP 11–41; TEMP 37.2; O2SAT 67–100; BMI 20.1
--- NOTE | 2021-03-12 08:23 | DI.RAD.S_ITS ---
PROCEDURE: XR CHEST 1V INDICATIONS: chest pain TECHNIQUE: One view of the chest was acquired. COMPARISON: , CR, XR CHEST 1V, 04/10/2020, 17:42. FINDINGS: Surgical changes and devices: None. Lungs and pleura: Lungs are clear. No pleural effusions or pneumothorax. Mediastinum: Mediastinal contours appear normal. Heart size is normal. Bones and chest wall: No suspicious bony lesions. Overlying soft tissues appear unremarkable. IMPRESSION: No acute cardiopulmonary disease process. Dictated by: Bev Pretty MD, PhD on 03/12/2021 at 9:09 Approved by: Bev Pretty MD, PhD on 03/12/2021 at 9:10
[2021-03-12 08:31] LABS: Add Manual Diff / Slide Review NO; Basophils Absolute Auto 0 /uL (0-100); Basophils Percent Auto 0.5 % (0-2); Eosinophils Absolute Auto 0 /uL (0-450); Eosinophils Percent Auto 0.5 % (2-4); Lymphocytes Absolute Auto 600 /uL (1100-4500); Lymphocytes Percent Auto 11.1 % (25-40); Mean Corpuscular HGB Conc 33.2 % (30-36); Mean Corpuscular Hemoglobin 29.6 PG (26-34); Mean Corpuscular Volume 88.9 fL (80-100); Monocytes Absolute Auto 400 /uL (0-900); Monocytes Percent Auto 7.2 % (3-14); Neutrophils Absolute Auto 4500 /uL (1500-7000); Neutrophils Percent Auto 80.7 % (50-75); Platelet Count 231 X10^3/uL (150-400); Red Blood Cell Count 4.05 X10^6/uL (4.0-5.2); Red Cell Distribution Width 13.5 % (11.6-14.8); White Blood Cell Count 5.5 X10^3/uL (4.5-11.0)
[2021-03-12 08:36] LABS: Alanine Aminotransferase 9 IU/L (<35); Albumin 4.8 g/dL (3.5-5.0); Albumin Globulin Ratio 1.5 (1.0-2.8); Alkaline Phosphatase 54 U/L (38-126); Aspartate Aminotransferase 32 IU/L (14-36); BUN Creatinine Ratio 16.4 (6-22); Bilirubin Total 0.6 mg/dL (0.2-1.3); Blood Urea Nitrogen 12 mg/dL (7-17); Calcium 10.1 mg/dL (8.4-10.2); Carbon Dioxide 29 mmol/L (22-32); Chloride 97 mmol/L (98-107); Creatine Kinase 43 U/L (30-135); Estimated Glomerular Filt Rate > 60.0 mL/min (>60); Globulin 3.1 g/dL (1.7-4.1); Glucose 92 mg/dL (80-110); HEMOLYSIS 37 (0-50); Lipase 53 U/L (23-300); Magnesium 2.2 mg/dL (1.6-2.3); Potassium 4.5 mmol/L (3.4-5.1); Sodium 135 mmol/L (137-145); Total Protein 7.9 g/dL (6.3-8.2)
--- NOTE | 2021-03-12 08:41 | DI.CT.S_ITS ---
PROCEDURE: CT HEAD/BRAIN WO CON INDICATIONS: dizzy TECHNIQUE: Noncontrast 4.5 mm thick angled axial sections acquired from the foramen magnum to the vertex, with coronal and sagittal reformats. For radiation dose reduction, the following was used: automated exposure control, adjustment of mA and/or kV according to patient size. COMPARISON: None. FINDINGS: Image quality: Excellent. CSF spaces: Basal cisterns are patent. No extra-axial fluid collections. The ventricles are symmetric in size and shape. Brain: No intracranial bleeds. 8 millimeter calcified left parietal convexity extra-axial mass is likely represents a meningioma. There is cerebral volume loss for age, with resultant ventricular and sulcal prominence. There are periventricular and deep white matter chronic small vessel ischemic changes. There is intracranial internal carotid artery atherosclerosis. Skull and face: Calvarium and visualized facial bones appear intact, without suspicious lesions. Sinuses: Visualized sinuses and mastoids are clear. IMPRESSION: No acute intracranial disease process. Dictated by: Bev Pretty MD, PhD on 03/12/2021 at 9:07 Approved by: Bev Pretty MD, PhD on 03/12/2021 at 9:09
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
[2021-03-12 08:48] LABS: Troponin I < 0.012 ng/mL (0.01-0.034)
[2021-03-12] MEDS: SODIUM CHLORIDE 0.9% 1,000 ML 1000 ML IV (10:25)
--- NOTE | 2021-03-12 11:16 | PC.NURSE ---
Obtained patient care. Up for discharge.
== END 2021-03-12 11:20 | disposition home or self-care (01) ==
PROVIDERS: Emergency Provider Emergency Medicine; Family Provider Family Medicine; PCP Family Medicine
DX: I10 Essential (primary) hypertension (principal); R42 Dizziness and giddiness; Z87.891 Personal history of nicotine dependence
CPT/HCPCS: 70450; 71045; 80053; 82550; 83690; 83735; 84484; 85025; 93005; 93010; 96360; 99283; 99284

== ENCOUNTER → 2021-03-21 12:25 | Outpatient (CLI) | payer MEDICARE, SELFPAY ==
--- NOTE | 2021-03-21 12:26 | DI.US.S_ITS ---
PROCEDURE: US CAROTID DOPPLER BI INDICATIONS: DIZZINESS TECHNIQUE: Color and pulse Doppler interrogation was performed of both carotid systems, with image documentation and velocity measurements. COMPARISON: None. FINDINGS: Stenosis calculations are based on SRU (Society of Radiologists in Ultrasound) criteria. Right side: Brachial blood pressure: 118/identified mm Hg. Common carotid artery peak systolic velocity: 79 cm/sec. Internal carotid artery peak systolic velocity: 64 cm/sec. Internal carotid artery end diastolic velocity: 23 cm/sec. External carotid artery peak systolic velocity: 105 cm/sec. ICA/CCA peak systolic ratio: 0.8 . Navarrete scale imaging description: Calcified plaques at the bifurcation. Percent internal carotid artery stenosis: Less than 50%. Vertebral artery: Flow direction is antegrade. Left side: Brachial blood pressure: 117/73 mm Hg. Common carotid artery peak systolic velocity: 87 cm/sec. Internal carotid artery peak systolic velocity: 72 cm/sec. Internal carotid artery end diastolic velocity: 29 cm/sec. External carotid artery peak systolic velocity: 105 cm/sec. ICA/CCA peak systolic ratio: 0.8 . Navarrete scale imaging description: Calcified plaques at the bifurcation Percent internal carotid artery stenosis: Less than 50% . Vertebral artery: Flow direction is antegrade. IMPRESSION: Less than 50% internal carotid artery stenosis bilaterally. Dictated by: King Long M.D. on 03/21/2021 at 15:30 Approved by: King Long M.D. on 03/21/2021 at 15:33
== END ==
PROVIDERS: Family Provider Family Medicine; PCP Family Medicine; Referring Provider Physician Assistant; Visit Provider Physician Assistant
DX: R42 Dizziness and giddiness (principal); I65.23 Occlusion and stenosis of bilateral carotid arteries
CPT/HCPCS: 93880

== ENCOUNTER 2021-03-27 13:39 | Outpatient (RCR) | payer MEDICARE, SELFPAY ==
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
--- NOTE | 2021-03-27 15:15 | PT.OPPOC ---
Physical, Occupational & Speech Therapy At [facility] Current Diagnoses Dizziness and giddiness (03/27/21) Visit Care Team Role Provider Type Michele Quinones MD Attending Provider Physician Family Provider Primary Care Provider Referring Provider Specialty: Family Practice Address: [address] [place] [address], [id number] Email: [email or web address] Plan Of Care PT-OP-T Assessment and Plan Start: 03/27/21 17:41 Freq: Status: Active Protocol: Document 03/27/21 14:30 DCW (Rec: 03/28/21 09:40 DCW [id number]) Physical Therapy Assessment Rehab Potential Rehabilitation Potential Poor Evaluation Complexity Number of Personal Factors/Comorbidities 3 or More Number of Body Systems Impaired 4 or More Clinical Presentation at Evaluation Unstable Impairments Impairments Balance Assessment Summary Assessment Pt presents with an unusual presentation of spontaneous dizziness. Pt's combined symptoms are not suggestive of any particular vestibular dysfunction. Pt does present with a positive head shake test, showing a sustained horizontal nystagmus lasting ~ 10 seconds. Positive head shake is typically indicative of dysfunction, but does not differentiate between a peripheral or central cause. Additionally, pt displays an occasional limitation with right eye adduction. When performing fast changes in depth of field, pt's right eye does not adduct. Pt also has difficulty with convergence, resulting in diplopia when target is still six inches away. These visual deficits may just be a continued effect from prior eye injury, like when she reportedly had a fairly bad infection following cataract removal, however it may also be a sign of a central cause of her symptoms. Pt is unlikely to benefit from vestibular therapy, but should be considered for advanced imaging to rule in or out potential central causes of her symptoms Physical Therapy Plan Frequency and Duration Frequency of Treatment 1x/Week Duration of Treatment 1 day Plan of Care Start Date 03/27/21 Plan of Care End Date 03/28/21 Other Referrals/Consults Referrals/Consults Recommended Pt may benefit from advanced imaging to rule in or out potential central causes of her symptoms. Discharge Physical Therapy Discharge Comments Continued vestibular therapy not indicated at this time Next Visit Focus/Plan Next Note Type Discharge Summary Plan of Care Dates Plan of Care Start Date 03/27/21 Plan of Care End Date 03/28/21 Electronically Signed by: Les Ambriz, PT 03/28/21 0942 Please Sign and Return: I have reviewed this Plan of Care and certify that the skilled therapy services above are required to meet the patient?s needs. Physician Signature Date Printed Name and Credentials Clinical Instructor Signature Printed Name and Credentials
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
== END 2021-04-04 14:38 ==
LOC: PHYS 13:39
PROVIDERS: Family Provider Family Medicine; PCP Family Medicine; Referring Provider Family Medicine; Visit Provider Family Medicine
DX: R42 Dizziness and giddiness (principal)
CPT/HCPCS: 97163

== ENCOUNTER → 2021-04-02 11:30 | Outpatient (CLI) | payer MEDICARE, SELFPAY ==
--- NOTE | 2021-04-02 | DI.RAD.S_ITS ---
PROCEDURE: XR CERVICAL SPINE 2V OR 3V INDICATIONS: NECK PAIN AND DIZZINESS TECHNIQUE: 3 view(s) of the cervical spine were acquired. COMPARISON: None. FINDINGS: Bones: No fractures or dislocations to the C7-T1 level. Mild reversal of normal cervical lordosis is seen. Minimal anterolisthesis at C3-4 and C4-5 levels are seen. Loss of disc height and degenerative endplate changes are noted throughout cervical spine more prominent at C5-6 and C6-7 levels. The lateral masses of C1 appear intact on the odontoid view. No suspicious bony lesions. Soft tissues: No prevertebral soft tissue swelling. IMPRESSION: Degenerative disc disease throughout cervical spine as above. No acute fracture or dislocation. Minimal anterolisthesis at C3-4 and C4-5 levels. Dictated by: Zak Gilbert M.D. on 04/02/2021 at 14:03 Approved by: Zak Gilbert M.D. on 04/02/2021 at 14:03
== END ==
PROVIDERS: Family Provider Family Medicine; PCP Family Medicine; Referring Provider Family Medicine; Visit Provider Family Medicine
DX: M54.2 Cervicalgia (principal); R42 Dizziness and giddiness
CPT/HCPCS: 72040

== ENCOUNTER 2021-04-25 09:22 | Emergency (ER) | payer MEDICARE, SELFPAY ==
[2021-04-25 09:23] VITALS: BP 161/68; PULSE 77; RESP 14; TEMP 36.9; O2SAT 97; BMI 19.5
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
--- NOTE | 2021-04-25 09:59 | DI.RAD.S_ITS ---
PROCEDURE: XR HIP W PEL IF DONE RT 2V INDICATIONS: fall, right groin pain w/ weightbearing, leg movement. TECHNIQUE: AP pelvis with lateral view(s) of the right hip(s). COMPARISON: [facility], CT, CT HEAD/BRAIN WO CON, 04/25/2021, 10:16. FINDINGS: Bones: No fractures or dislocations. Pelvic ring appears intact. No suspicious bony lesions. There is usma-yu-zyaptvoi superior joint space narrowing seen of the right hip, with associated remodeling changes with subchondral sclerosis and osteophyte formation. Soft tissues: The visualized bowel gas pattern is normal. No suspicious soft tissue calcifications. IMPRESSION: No displaced fractures are seen on this plain film study. Dictated by: Ryan Valle M.D. on 04/25/2021 at 9:32 Approved by: Ryan Valle M.D. on 04/25/2021 at 9:33
--- NOTE | 2021-04-25 10:00 | DI.CT.S_ITS ---
PROCEDURE: CT HEAD/BRAIN WO CON INDICATIONS: fall, right groin pain w/ weightbearing, leg movement. TECHNIQUE: Noncontrast 4.5 mm thick angled axial sections acquired from the foramen magnum to the vertex, with coronal and sagittal reformats. For radiation dose reduction, the following was used: automated exposure control, adjustment of mA and/or kV according to patient size. COMPARISON: [facility], CT, CT HEAD/BRAIN WO CON, 03/12/2021, 8:54. FINDINGS: Image quality: Excellent. CSF spaces: Basal cisterns are patent. No extra-axial fluid collections. The ventricles are symmetric in size and shape. Brain: No intracranial bleeds or masses. There is cerebral volume loss for age, with resultant ventricular and sulcal prominence. There are periventricular and deep white matter chronic small vessel ischemic changes. There is intracranial internal carotid artery atherosclerosis. Skull and face: Calvarium and visualized facial bones appear intact, without suspicious lesions. Incidental note is made of hyperostosis frontalis. This is not considered to be pathologic in a woman of this age. Sinuses: Visualized sinuses and mastoids are clear. IMPRESSION: No acute intracranial hemorrhage is seen. No acute intracranial process is seen. Note is made of age-appropriate brain parenchymal volume loss and chronic small vessel ischemic changes. Dictated by: Ryan Valle M.D. on 04/25/2021 at 9:33 Approved by: Ryan Valle M.D. on 04/25/2021 at 9:34
[2021-04-25 11:16] LABS: Add Manual Diff / Slide Review NO; Basophils Absolute Auto 0 /uL (0-100); Basophils Percent Auto 0.4 % (0-2); Eosinophils Absolute Auto 0 /uL (0-450); Eosinophils Percent Auto 0.2 % (2-4); Hematocrit 33.1 % (36-46); Hemoglobin 11.1 g/dL (12.0-16.0); Lymphocytes Absolute Auto 600 /uL (1100-4500); Mean Corpuscular HGB Conc 33.5 % (30-36); Mean Corpuscular Volume 89.7 fL (80-100); Monocytes Absolute Auto 600 /uL (0-900); Monocytes Percent Auto 6.9 % (3-14); Neutrophils Absolute Auto 7600 /uL (1500-7000); Neutrophils Percent Auto 85.5 % (50-75); Platelet Count 178 X10^3/uL (150-400); Red Blood Cell Count 3.69 X10^6/uL (4.0-5.2); White Blood Cell Count 8.9 X10^3/uL (4.5-11.0)
[2021-04-25] MEDS: HYDROCODONE/ACET 5/325 TABLET 1 TAB PO (11:21)
[2021-04-25 11:25] LABS: BUN Creatinine Ratio 21.2 (6-22); Blood Urea Nitrogen 14 mg/dL (7-17); Carbon Dioxide 29 mmol/L (22-32); Chloride 101 mmol/L (98-107); Estimated Glomerular Filt Rate > 60.0 mL/min (>60); Glucose 95 mg/dL (80-110); HEMOLYSIS < 15 (0-50); Potassium 4.4 mmol/L (3.4-5.1); Sodium 137 mmol/L (137-145)
--- NOTE | 2021-04-25 11:48 | DI.CT.S_ITS ---
PROCEDURE: CT PEL WO CON INDICATIONS: right groin/pelvic pain, hip. fall yesterday TECHNIQUE: Noncontrast 3 mm axial sections acquired through the bony pelvis, with coronal and sagittal reformatting. COMPARISON: [facility], CR, XR HIP W PEL IF DONE RT 2V, 04/25/2021, 10:13. FINDINGS: Image quality: Excellent. Bones: There is minimally displaced fracture involving midportion of right inferior pubic ramus. Minimally displaced fracture is also noted involving medial aspect of right superior pubic ramus near symphysis pubis best seen on series 5, image 12. No right femoral fracture or dislocation is seen. Moderate bilateral hip joint osteoarthritic changes are seen. No evidence of avascular necrosis of femoral head. No suspicious intraosseous lesion. Benign-appearing mixed lytic and sclerotic lesion involving medullary space of proximal humeral shaft/intertrochanteric space is noted most consistent with enchondroma. Soft tissues: There is no pelvic free fluid or free air. No abnormal bowel wall thickening. Bladder wall thickness is normal. No pelvic lymphadenopathy. No gross muscle or soft tissue abnormality is noted. IMPRESSION: 1. Minimally displaced fractures involving right superior and inferior pubic rami. 2. No right hip fracture or dislocation. Moderate bilateral hip joint osteoarthritis. No evidence of avascular necrosis. Dictated by: Zak Gilbert M.D. on 04/25/2021 at 12:10 Approved by: Zak Gilbert M.D. on 04/25/2021 at 12:15
[2021-04-25 12:17] VITALS: BP 141/65; PULSE 72; RESP 16; O2SAT 100
== END 2021-04-25 13:24 | disposition home or self-care (01) ==
PROVIDERS: Emergency Provider Emergency Medicine; Family Provider Family Medicine; PCP Family Medicine
DX: S32.511A Fracture of superior rim of right pubis, initial encounter for closed fracture (principal); S32.591A Other specified fracture of right pubis, initial encounter for closed fracture; R03.0 Elevated blood-pressure reading, without diagnosis of hypertension; W01.198A Fall on same level from slipping, tripping and stumbling with subsequent striking against other object, initial encounter
CPT/HCPCS: 36415; 70450; 72192; 73502; 80048; 81003; 85025; 93005; 99283; 99284

== ENCOUNTER → 2021-06-18 08:22 | Outpatient (CLI) | payer MEDICARE, SELFPAY ==
--- NOTE | 2021-06-18 08:23 | DI.RAD.S_ITS ---
PROCEDURE: XR PELVIS 1-2V INDICATIONS: pelvic bone fracture TECHNIQUE: 1 view(s) of the pelvis acquired. COMPARISON: [facility], CT, CT PEL WO CON, 04/25/2021, 12:02. FINDINGS: Bones: Sclerosis and slight deformity noted in the right right pubic bone compatible with healing fracture. No suspicious bony lesions. Mild osseous hypertrophy noted in the hips bilaterally. Soft tissues: Visualized bowel gas pattern is normal. No suspicious soft tissue calcifications. IMPRESSION: 1. Healing right pubic bone fracture. 2. Mild bilateral hip osteoarthritis. Dictated by: Bev Pretty MD, PhD on 06/18/2021 at 15:42 Approved by: Bev Pretty MD, PhD on 06/18/2021 at 15:44
== END ==
PROVIDERS: Family Provider Family Medicine; PCP Family Medicine; Referring Provider Family Medicine; Visit Provider Family Medicine
DX: S32.501D Unspecified fracture of right pubis, subsequent encounter for fracture with routine healing (principal); M16.0 Bilateral primary osteoarthritis of hip
CPT/HCPCS: 72170

== ENCOUNTER → 2021-06-26 16:34 | Outpatient (CLI) | payer MEDICARE, SELFPAY | PROVIDERS: Family Provider Family Medicine; PCP Family Medicine; Visit Provider Physician Assistant | DX: R10.30 Lower abdominal pain, unspecified (principal) | CPT/HCPCS: 87086 ==

== ENCOUNTER → 2021-07-17 11:51 | Outpatient (CLI) | payer MEDICARE, SELFPAY ==
[2021-07-17 12:23] LABS: Add Manual Diff / Slide Review NO; Basophils Absolute Auto 0 /uL (0-100); Basophils Percent Auto 0.4 % (0-2); Eosinophils Absolute Auto 0 /uL (0-450); Eosinophils Percent Auto 0.5 % (2-4); Hematocrit 37.2 % (36-46); Hemoglobin 12.2 g/dL (12.0-16.0); Lymphocytes Absolute Auto 700 /uL (1100-4500); Lymphocytes Percent Auto 11.7 % (25-40); Mean Corpuscular HGB Conc 32.9 % (30-36); Mean Corpuscular Hemoglobin 29.1 PG (26-34); Mean Corpuscular Volume 88.4 fL (80-100); Monocytes Absolute Auto 300 /uL (0-900); Monocytes Percent Auto 4.8 % (3-14); Neutrophils Absolute Auto 5100 /uL (1500-7000); Neutrophils Percent Auto 82.6 % (50-75); Platelet Count 231 X10^3/uL (150-400); Red Cell Distribution Width 14.1 % (11.6-14.8); White Blood Cell Count 6.2 X10^3/uL (4.5-11.0)
[2021-07-17 12:48] LABS: HEMOLYSIS < 15 (0-50); Iron 34 ug/dL (37-170)
[2021-07-17 12:59] LABS: Percent Iron Saturation 10 % (15-50); Total Iron Binding Capacity 327 ug/dL (265-497); Transferrin 268 mg/dL (206-381)
[2021-07-17 13:25] LABS: Ferritin 29 ng/mL (11-264)
[2021-07-17 13:39] LABS: Vitamin B12 931 pg/mL (239-931)
[2021-07-17 14:51] LABS: Vitamin D 25 Hydroxy (D3) 51.1 ng/mL (30.0-100.0)
== END ==
PROVIDERS: Family Provider Family Medicine; PCP Family Medicine; Referring Provider Physician Assistant; Visit Provider Physician Assistant
DX: D64.9 Anemia, unspecified (principal); M81.0 Age-related osteoporosis without current pathological fracture; R42 Dizziness and giddiness; R53.83 Other fatigue
CPT/HCPCS: 36415; 82306; 82607; 82728; 83540; 83550; 85025

== ENCOUNTER → 2021-08-20 16:35 | Outpatient (CLI) | payer MEDICARE, SELFPAY ==
--- NOTE | 2021-08-20 16:36 | DI.MRI.S_ITS ---
PROCEDURE: MR CERVICAL SPINE WO CON INDICATIONS: Dizziness/CUTLER secondary to cervical pain TECHNIQUE: Noncontrast sagittal T1 spin echo and T2 fast spin echo, sagittal STIR, foraminal oblique sagittal T2 fast spin echo, and axial gradient echo or T2 fast spin echo through the cervical spine. COMPARISON: None. FINDINGS: Straightening and reversal of the usual cervical lordosis. Anterolisthesis of C3 on C4 measuring 2 millimeters. Anterolisthesis of C4 on C5 measuring 3 millimeters. Vertebral body heights maintained. No suspicious focal marrow signal abnormality or bone marrow edema. Degenerative versus congenital fusion of the posterior elements on the right at C3-C4. Normal morphology and signal intensity of the cervical cord. There is no syrinx. Regional prevertebral and paraspinous soft tissues grossly unremarkable in the absence of IV contrast. C2-C3: No spinal canal or neural foraminal stenosis. C3-C4: Mild bilateral neural foraminal narrowing due to facet and uncovertebral hypertrophy. No spinal canal stenosis. C4-C5: [id number] spinal canal stenosis due to listhesis with posterior disc osteophyte complex also flattening the ventral cord. Facet and uncovertebral hypertrophy combine to produce mild bilateral neural foraminal stenosis. C5-C6: Posterior disc osteophyte complex flattens and indents the ventral cord producing moderate spinal canal stenosis. Facet and uncovertebral hypertrophy combine to produce mild bilateral neural foraminal narrowing. C6-C7: Posterior disc osteophyte complex flattens the ventral thecal sac without mass effect upon the cord. Facet and uncovertebral hypertrophy combine to produce moderate bilateral neural foraminal stenosis. C7-T1: No spinal canal or neural foraminal stenosis. IMPRESSION: Moderate spinal canal stenosis at C5-C6 and mild-moderate spinal canal stenosis at C4-C5. Varying degrees of neural foraminal stenosis, worst at C6-C7 (moderate bilaterally). Straightening and reversal of the usual cervical lordosis with multilevel listhesis. Dictated by: Michele Liriano M.D. on 08/21/2021 at 11:19 Approved by: Michele Liriano M.D. on 08/21/2021 at 11:22
== END ==
PROVIDERS: Family Provider Family Medicine; PCP Family Medicine; Referring Provider Physician Assistant; Visit Provider Physician Assistant
DX: G44.86 Cervicogenic headache (principal); M50.30 Other cervical disc degeneration, unspecified cervical region; M47.812 Spondylosis without myelopathy or radiculopathy, cervical region; R42 Dizziness and giddiness; M48.02 Spinal stenosis, cervical region
CPT/HCPCS: 72141

== ENCOUNTER → 2021-08-25 08:26 | Outpatient (CLI) | payer MEDICARE, SELFPAY ==
--- NOTE | 2021-08-25 08:27 | DI.MRI.S_ITS ---
PROCEDURE: MR ANGIO HEAD WO CON INDICATIONS: Dizziness, balance disorder,vertibral basilar insuf. TECHNIQUE: Noncontrast axial 3-D [id number] MR angiogram, with 3-dimensional maximum intensity projection (MIP) reformats of the internal carotid arteries and posterior circulation then performed. COMPARISON: None. FINDINGS: Image quality: Excellent. Anterior circulation: Intracranial internal carotid arteries demonstrate normal size and intraluminal flow signal. The flow within the paired anterior cerebral arteries is normal and symmetric. The flow within the middle cerebral arteries is normal and symmetric. The anterior communicating artery is seen. No stenoses, occlusions, or aneurysms. Posterior circulation: Visualized portions of the vertebral arteries demonstrate normal caliber, and join to form a normal appearing basilar artery. Incidental hypoplastic bilateral P1 DRIVER LICENSE EXAMINER segments associated with widely patent posterior communicating arteries. Severe focal stenosis noted in both P2 DRIVER LICENSE EXAMINER perimesencephalic segments, right greater than left. No aneurysm or vascular malformation IMPRESSION: 1. Severe bilateral P2 DRIVER LICENSE EXAMINER focal stenosis, right greater than left. Consider CTA confirmation Approved by: Soy Ma M.D. on 08/25/2021 at 9:08
== END ==
PROVIDERS: Family Provider Family Medicine; PCP Family Medicine; Referring Provider Physician Assistant; Visit Provider Physician Assistant
DX: I66.3 Occlusion and stenosis of cerebellar arteries (principal); G45.0 Vertebro-basilar artery syndrome; R42 Dizziness and giddiness; R26.89 Other abnormalities of gait and mobility
CPT/HCPCS: 70544

== ENCOUNTER 2021-08-31 10:30 | Outpatient (RCR) | payer MEDICARE, SELFPAY ==
[2021-07-12 11:15] VITALS: BP 122/76; BP 130/80
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
--- NOTE | 2021-07-12 12:00 | PT.OPPOC ---
Physical, Occupational & Speech Therapy At [facility] Current Diagnoses Dizziness and giddiness (07/12/21) Visit Care Team Role Provider Type Michele Quinones MD Family Provider Physician Primary Care Provider Specialty: Family Practice Address: [address] [place] [address], [id number] Email: [email or web address] Yue García PA-C Attending Provider Advanced Concrete Tester Referring Provider Specialty: Medical Address: [facility], [address] [place], [address] Email: [email or web address] Plan Of Care PT-OP-T Assessment and Plan Start: 07/12/21 09:07 Freq: Status: Active Protocol: Document 07/12/21 11:15 AMB (Rec: 07/15/21 11:03 AMB [id number]) Physical Therapy Assessment Rehab Potential Rehabilitation Potential Good Evaluation Complexity Number of Personal Factors/Comorbidities 1-2 Number of Body Systems Impaired 3 Clinical Presentation at Evaluation Evolving Impairments Impairments Activity Tolerance,Balance, Functional Activities Goals Two Impairment Dizziness Short Term Goal (STG) Ching will report that she can move from sit to stand without dizziness. STG Duration 4 weeks Assisted Goal (LTG) Ching will ambulate with her walker for 5 minutes without reported dizziness. LTG Duration 8 weeks One Impairment Balance Short Term Goal (STG) Ching will balance with narrow base of support and eyes closed for 15 seconds without loss of balance. STG Duration 4 weeks Assisted Goal (LTG) Ching will be independent and consistent with a HEP for her balance. LTG Duration 8 weeks Assessment Summary Assessment Ching returns to physical therapy for vestibular eval. Extensive time spent discussing different types of dizziness vs lightheadedness vs feeling off balance. Positional testing was negative for any BPPV. Pt did endorse some lightheadedness with orthostatic testing, but there was only a 8 drop in systolic and a 4 point drop in diastolic when moving from supine to standing. Ching did have difficulty with any eyes closed balancing. Overall it is very evident that she does not have BPPV, but otherwise challenging to tell exactly what is causing her dizziness which she at time describes as spinning but othertimes describes as lightheadedness. Physical therapy will work with her on her balance briefly to further assess if it more of a feeling of being off balance that the patient is endorsing, but if she does not quickly improve, will send her back to her PCP for further evaluation as she does not show signs of peripheral vestibular impairment during evaluation. Physical Therapy Plan Frequency and Duration Frequency of Treatment 1x/Week Duration of Treatment 8 weeks Plan of Care Start Date 07/12/21 Plan of Care End Date 09/06/21 Therapeutic Interventions Therapeutic Interventions Balance Training,Gait Training ,Home Exercise Program, Neuromuscular Re-education, Self-Care/Home Management, Therapeutic Activities, Therapeutic Exercises Next Visit Focus/Plan Next Note Type Treatment Note Next Visit Plan establish balance HEP Plan of Care Dates Plan of Care Start Date 07/12/21 Plan of Care End Date 09/06/21 Electronically Signed by: Lulu Booker, PT 07/15/21 1100 Please Sign and Return: I have reviewed this Plan of Care and certify that the skilled therapy services above are required to meet the patient?s needs. Physician Signature Date Printed Name and Credentials Clinical Instructor Signature Printed Name and Credentials
--- NOTE | 2021-07-17 12:54 | PT.OTN ---
Current Diagnoses Dizziness and giddiness (07/17/21) Physical Therapy Treatment Note PT-OP-A Visit Information Start: 07/12/21 09:07 Freq: Status: Active Protocol: Document 07/17/21 10:45 AMB (Rec: 07/17/21 11:15 AMB [id number]) Out-Patient Physical Therapy Visit Information Visit Information Visit Type Treatment Note Visit Start Time 10:45 Visit Stop Time 11:15 Total Visit Minutes 30 Visit Number 2 PT-OP-B Current Condition Start: 07/12/21 09:07 Freq: Status: Active Protocol: Document 07/12/21 11:10 AMB (Rec: 07/12/21 11:54 AMB [id number]) Current Condition History of Current Condition Onset Date Off and on for over 2 years Current Complaints Dizziness History of Current Condition Fell a couple months ago in the kitchen and has been using the walker since then- fractured pelvis. Getting up from the recliner is one of the worst things. Thinks it's more lightheaded that spinning. Denies dizziness with rolling over in bed. Says that she isn't dizzy at night, more during the day and lying flat helps. Specifically denies dehydration, nausea, hearing change, ear pressure, headache , neck pain. Lives alone in her own home does have stairs with a railing. Treatment Goals Patient/Caregiver Goals Get rid of dizziness Prior Functional Status Baseline Function- ADL's Modified Independent Baseline Function- Mobility Modified Independent Personal Factors Other Personal Factors That May Effect osteoporosis Therapy/Recovery PT-OP-C Subjective Start: 07/12/21 09:07 Freq: Status: Active Protocol: Document 07/17/21 10:45 AMB (Rec: 07/17/21 11:15 AMB [id number]) OP-PT Subjective Patient Comments Patient Comments Pt noticed some dizziness this morning while talking on the phone (standing looking down) but is not dizzy now. PT-OP-D Balance Start: 07/12/21 09:07 Freq: Status: Active Protocol: Document 07/12/21 11:15 AMB (Rec: 07/15/21 10:50 AMB [id number]) Balance Tests mCTSIB mCTSIB Position 1 30 sec mCTSIB Position 2 fall mCTSIB Position 3 30 sec mCTSIB Position 4 fall PT-OP-H Neuro Start: 07/15/21 10:47 Freq: Status: Active Protocol: Document 07/12/21 11:15 AMB (Rec: 07/15/21 10:50 AMB [id number]) Vital Signs Blood Pressure Standing Blood Pressure (90/60-120/80 mmHg) 122/76 H Blood Pressure Source Automatic Cuff,Left Upper Extremity Supine Blood Pressure (90/60-120/80 mmHg) 130/80 H Blood Pressure Source Automatic Cuff,Left Upper Extremity PT-OP-O Vestibular Start: 07/12/21 09:07 Freq: Status: Active Protocol: Document 07/12/21 11:15 AMB (Rec: 07/15/21 10:50 AMB [id number]) Vestibular Assessment Visual Testing Smooth Pursuits Horizontal WFL Smooth Pursuits Vertical WFL Saccades Horizontal WFL Saccades Vertical WFL Convergence Test 8 Positional Testing [place]-Hallpike Negative Left,Negative Right Rolling Test Negative Left,Negative Right PT-OP-Q Treatments Start: 07/12/21 09:07 Freq: Status: Active Protocol: Document 07/17/21 10:30 AMB (Rec: 07/17/21 12:53 AMB [id number]) Therapeutic Exercises Standing Exercises sit to stand Reps/Minutes 10 Comments Ue support needed Other Exercises bending forward Other Exercise Name to belt picker cones Reps/Minutes 10 Comments no dizziness Neuro Re-Education Treatment Balance Activities foam Details with head turns Reps/Duration NBOS Comments vertical and horizontal PT-OP-T Assessment and Plan Start: 07/12/21 09:07 Freq: Status: Active Protocol: Document 07/17/21 10:45 AMB (Rec: 07/17/21 11:15 AMB [id number]) Physical Therapy Assessment Assessment Summary Assessment Was not able to reproduce any dizziness today. Discussed with patient that if she is having days where she has no sx and then other days where she has sx no matter what she does it does not sound especially vestibular in nature, but did continue to work on balance training as pt is hoping to d/c FWW soon after pelvic fx. Physical Therapy Plan Next Visit Focus/Plan Next Note Type Treatment Note Next Visit Plan establish balance HEP, what imaging did pt have?
--- NOTE | 2021-07-27 13:14 | PT.OTN ---
Current Diagnoses Dizziness and giddiness (07/27/21) Physical Therapy Treatment Note PT-OP-A Visit Information Start: 07/12/21 09:07 Freq: Status: Active Protocol: Document 07/27/21 13:05 AMB (Rec: 07/27/21 13:14 AMB [id number]) Out-Patient Physical Therapy Visit Information Visit Information Visit Type Treatment Note Visit Start Time 13:00 Visit Stop Time 13:45 Total Visit Minutes 45 Visit Number 3 PT-OP-B Current Condition Start: 07/12/21 09:07 Freq: Status: Active Protocol: Document 07/12/21 11:10 AMB (Rec: 07/12/21 11:54 AMB [id number]) Current Condition History of Current Condition Onset Date Off and on for over 2 years Current Complaints Dizziness History of Current Condition Fell a couple months ago in the kitchen and has been using the walker since then- fractured pelvis. Getting up from the recliner is one of the worst things. Thinks it's more lightheaded that spinning. Denies dizziness with rolling over in bed. Says that she isn't dizzy at night, more during the day and lying flat helps. Specifically denies dehydration, nausea, hearing change, ear pressure, headache , neck pain. Lives alone in her own home does have stairs with a railing. Treatment Goals Patient/Caregiver Goals Get rid of dizziness Prior Functional Status Baseline Function- ADL's Modified Independent Baseline Function- Mobility Modified Independent Personal Factors Other Personal Factors That May Effect osteoporosis Therapy/Recovery PT-OP-C Subjective Start: 07/12/21 09:07 Freq: Status: Active Protocol: Document 07/27/21 13:05 AMB (Rec: 07/27/21 13:14 AMB [id number]) OP-PT Subjective Patient Comments Patient Comments Pt notes continued dizziness especially when she is standing and talking on the phone. PT-OP-D Balance Start: 07/12/21 09:07 Freq: Status: Active Protocol: Document 07/12/21 11:15 AMB (Rec: 07/15/21 10:50 AMB [id number]) Balance Tests mCTSIB mCTSIB Position 1 30 sec mCTSIB Position 2 fall mCTSIB Position 3 30 sec mCTSIB Position 4 fall PT-OP-H Neuro Start: 07/15/21 10:47 Freq: Status: Active Protocol: Document 07/12/21 11:15 AMB (Rec: 07/15/21 10:50 AMB [id number]) Vital Signs Blood Pressure Standing Blood Pressure (90/60-120/80 mmHg) 122/76 H Blood Pressure Source Automatic Cuff,Left Upper Extremity Supine Blood Pressure (90/60-120/80 mmHg) 130/80 H Blood Pressure Source Automatic Cuff,Left Upper Extremity PT-OP-O Vestibular Start: 07/12/21 09:07 Freq: Status: Active Protocol: Document 07/12/21 11:15 AMB (Rec: 07/15/21 10:50 AMB [id number]) Vestibular Assessment Visual Testing Smooth Pursuits Horizontal WFL Smooth Pursuits Vertical WFL Saccades Horizontal WFL Saccades Vertical WFL Convergence Test 8 Positional Testing Amie-Hallpike Negative Left,Negative Right Rolling Test Negative Left,Negative Right PT-OP-Q Treatments Start: 07/12/21 09:07 Freq: Status: Active Protocol: Document 07/27/21 13:05 AMB (Rec: 07/27/21 13:14 AMB [id number]) Gait Training Gait Activity 1 Description 100' matthew FWLiliane Neuro Re-Education Treatment Vestibular Rehabilitation VOR Retraining Details wi FWW in front Comments 20 seconds at a time PT-OP-T Assessment and Plan Start: 07/12/21 09:07 Freq: Status: Active Protocol: Document 07/27/21 13:05 AMB (Rec: 07/27/21 13:14 AMB [id number]) Physical Therapy Assessment Assessment Summary Assessment Hcing had increased dizziness after VOR, but apparently worsened with sitting. Pt wanted to lie down- so offered for her to lie down here and she declined, felt better with walking. Overall sx do not present as vestibular, but would like to see pt one more time to try to get a better idea of what to request when she goes back to PCP, also encouraged pt to be more active as she feels better when she walks vs standing. Physical Therapy Plan Next Visit Focus/Plan Next Visit Plan Check HR when pt gets dizzy
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
--- NOTE | 2021-08-31 11:13 | PT.OPDS ---
Current Diagnoses Spondylosis without myelopathy or radiculopathy, cervical region (08/31/21) Other cervical disc degeneration, unspecified cervical region (08/31/21) Dizziness and giddiness (08/31/21) Visit Care Team Role Provider Type Michele Quinones MD Family Provider Physician Primary Care Provider Specialty: Family Practice Address: [address] [place] [address], [id number] Email: [email or web address] Yue García PA-C Attending Provider Advanced Aromatherapist Referring Provider Specialty: Medical Address: [address], [address] Email: [email or web address] Visit Number Visit Number 4 Discharge Summary PT-OP-B Current Condition Start: 07/12/21 09:07 Freq: Status: Active Protocol: Document 07/12/21 11:10 AMB (Rec: 07/12/21 11:54 AMB [id number]) Current Condition History of Current Condition Onset Date Off and on for over 2 years Current Complaints Dizziness History of Current Condition Fell a couple months ago in the kitchen and has been using the walker since then- fractured pelvis. Getting up from the recliner is one of the worst things. Thinks it's more lightheaded that spinning. Denies dizziness with rolling over in bed. Says that she isn't dizzy at night, more during the day and lying flat helps. Specifically denies dehydration, nausea, hearing change, ear pressure, headache , neck pain. Lives alone in her own home does have stairs with a railing. Treatment Goals Patient/Caregiver Goals Get rid of dizziness Prior Functional Status Baseline Function- ADL's Modified Independent Baseline Function- Mobility Modified Independent Personal Factors Other Personal Factors That May Effect osteoporosis Therapy/Recovery PT-OP-C Subjective Start: 07/12/21 09:07 Freq: Status: Active Protocol: Document 08/31/21 10:43 AMB (Rec: 08/31/21 11:09 AMB [id number]) OP-PT Subjective Patient Comments Patient Comments Ching returns to physical therapy with a new referral for neck pain. She had a cervical spine MRI and and MRA . PT-OP-D Balance Start: 07/12/21 09:07 Freq: Status: Active Protocol: Document 07/12/21 11:15 AMB (Rec: 07/15/21 10:50 AMB [id number]) Balance Tests mCTSIB mCTSIB Position 1 30 sec mCTSIB Position 2 fall mCTSIB Position 3 30 sec mCTSIB Position 4 fall PT-OP-H Neuro Start: 07/15/21 10:47 Freq: Status: Active Protocol: Document 07/12/21 11:15 AMB (Rec: 07/15/21 10:50 AMB [id number]) Vital Signs Blood Pressure Standing Blood Pressure (90/60-120/80 mmHg) 122/76 H Blood Pressure Source Automatic Cuff,Left Upper Extremity Supine Blood Pressure (90/60-120/80 mmHg) 130/80 H Blood Pressure Source Automatic Cuff,Left Upper Extremity PT-OP-O Vestibular Start: 07/12/21 09:07 Freq: Status: Active Protocol: Document 07/12/21 11:15 AMB (Rec: 07/15/21 10:50 AMB [id number]) Vestibular Assessment Visual Testing Smooth Pursuits Horizontal WFL Smooth Pursuits Vertical WFL Saccades Horizontal WFL Saccades Vertical WFL Convergence Test 8 Positional Testing [place]-Hallpike Negative Left,Negative Right Rolling Test Negative Left,Negative Right PT-OP-T Assessment and Plan Start: 07/12/21 09:07 Freq: Status: Active Protocol: Document 08/31/21 10:43 AMB (Rec: 08/31/21 11:09 AMB [id number]) Physical Therapy Assessment Goals Two Impairment Dizziness Short Term Goal (STG) Ching will report that she can move from sit to stand without dizziness. STG Duration 4 weeks Retirement Goal (LTG) Ching will ambulate with her walker for 5 minutes without reported dizziness. LTG Duration 8 weeks One Impairment Balance Short Term Goal (STG) Ching will balance with narrow base of support and eyes closed for 15 seconds without loss of balance. STG Duration 4 weeks Can Line Operator Goal (LTG) Ching will be independent and consistent with a HEP for her balance. LTG Duration 8 weeks Assessment Summary Assessment The patient reports a headache associated dizziness. She denies any pain at rest, or any pain when she is not dizzy . Her main concern is dizziness at this point. She is going to see a neurologist in [place] in September regarding her CHAIRMAN stenosis. Discussed neck pain and dizziness at length with patient, and she elected not to pursue physical therapy at this time and instead wait for her neurology appointment, since her pain and dizziness appear to be occurring at the same time from her report. Physical Therapy Plan Discharge Physical Therapy Discharge Reasons Plateau in Progress
== END 2021-09-21 08:14 | disposition home or self-care (01) ==
LOC: PHYS 10:30
PROVIDERS: Family Provider Family Medicine; PCP Family Medicine; Referring Provider Physician Assistant; Visit Provider Physician Assistant
DX: R42 Dizziness and giddiness (principal); M47.812 Spondylosis without myelopathy or radiculopathy, cervical region; M50.30 Other cervical disc degeneration, unspecified cervical region
CPT/HCPCS: 97110; 97112; 97162; 97164

== ENCOUNTER → 2021-10-09 09:29 | Outpatient (CLI) | payer MEDICARE, SELFPAY ==
[2021-10-09 10:56] LABS: Hematocrit 35.5 % (36-46); Hemoglobin 12.2 g/dL (12.0-16.0)
[2021-10-09 12:26] LABS: HEMOLYSIS < 15 (0-50); Iron 67 ug/dL (37-170)
[2021-10-09 12:31] LABS: Alanine Aminotransferase 7 IU/L (<35); Albumin 4.8 g/dL (3.5-5.0); Albumin Globulin Ratio 1.7 (1.0-2.8); Alkaline Phosphatase 69 U/L (38-126); Aspartate Aminotransferase 29 IU/L (14-36); BUN Creatinine Ratio 16.2 (6-22); Bilirubin Total 0.5 mg/dL (0.2-1.3); Blood Urea Nitrogen 11 mg/dL (7-17); Calcium 10.1 mg/dL (8.4-10.2); Carbon Dioxide 29 mmol/L (22-32); Chloride 101 mmol/L (98-107); Estimated Glomerular Filt Rate > 60 mL/min (>60); Globulin 2.9 g/dL (1.7-4.1); Glucose 92 mg/dL (80-110); HEMOLYSIS < 15 (0-50); Potassium 4.2 mmol/L (3.4-5.1); Sodium 138 mmol/L (137-145); Total Protein 7.7 g/dL (6.3-8.2)
[2021-10-09 12:37] LABS: Percent Iron Saturation 22 % (15-50); Total Iron Binding Capacity 307 ug/dL (265-497); Transferrin 231 mg/dL (206-381)
[2021-10-09 12:58] LABS: Ferritin 29 ng/mL (11-264)
== END ==
PROVIDERS: Family Provider Family Medicine; PCP Family Medicine; Referring Provider Physician Assistant; Visit Provider Physician Assistant
DX: E61.1 Iron deficiency (principal); I10 Essential (primary) hypertension
CPT/HCPCS: 36415; 80053; 82728; 83540; 83550; 85014; 85018

== ENCOUNTER 2021-12-04 11:01 | Outpatient (RCR) | payer MEDICARE, SELFPAY ==
--- NOTE | 2021-12-04 15:29 | ST.OPIE ---
Visit Care Team Role Provider Type Michele Quinones MD Attending Provider Physician Family Provider Primary Care Provider Referring Provider Specialty: Family Practice Address: [address] [place] [address], [facility] Email: [email or web address] Speech-Language Pathology Initial Evaluation CONTACT LENS BLOCKER AND CUTTER Clinical Instructor Line Start: 12/04/21 15:12 Freq: Status: Active Protocol: Document 12/04/21 15:28 TAINA (Rec: 12/04/21 15:29 TAINA [id number]) Clinical Instructor Signature Clinical Instructor Clinical Instructor Yes CONTACT LENS BLOCKER AND CUTTER Clinical Swallow Evaluation Start: 12/04/21 12:32 Freq: Status: Active Protocol: Document 12/04/21 12:32 EK (Rec: 12/04/21 12:47 EK [id number]) Clinical Swallow Evaluation Session Time Visit Start Time 12:30 Visit Stop Time 13:15 Total Visit Minutes 45 Visit Information Visit Number 1 Plan of Care Dates 12/04/2021-01/04/2022 Insurance Information [facility] Referral Referring Provider Michele Quinones MD Reason for Referral Dysphagia Setting Assessment Location Outpatient Care Visit Type Note Type Initial evaluation Patient Information Identification Type Name,ID Card History Pt is a 86-year-old female who lives alone in [place]. Several months ago, the pt experienced coughing and a sticking sensation while eating largely due to phlegm. This previously occurred regularly while eating. Pt reported these coughing episodes would cause her to sometimes cough up food pieces but primarily phlegm. Pt indicated that she has been using the strategy of small bites and eating at a slower rate. Pt also reported experiencing xerostomia, dry eyes, and dizziness. Subjective Observations Pt arrived on time and unaccompanied. Upon arrival, pt reported that her symptoms have largely resolved. She stated that a month ago she noticed improvement in her swallow and the last 2 weeks has experienced significant improvement. Pt expressed interest in continuing the assessment to ensure that her swallow function is WNL. Objective Assessment Mental Status Alert,Responsive,Cooperative Oral Integrity WFL Dentition Missing teeth,Decay Lip Function Within normal limits Observation of Lips at Rest Symmetrical Pucker Within normal limits Lip Retraction Within normal limits Alternating Pucker/Lip Retraction Within normal limits Tongue Function Within normal limits Observations of Tongue at Rest Within normal limits,Abnormal color Tongue Protrusion Within normal limits Tongue Lateralization Within normal limits Jaw Function Within normal limits Observations of Jaw at Rest Within normal limits Jaw Opening Within normal limits Jaw Closing Within normal limits Hard/Soft Palate Function Within normal limits Observations of Hard/Soft Palate Within normal limits Nasality Within normal limits Phonation Within normal limits Respiratory Sufficiency Within normal limits Comment Pt reported several missing teeth and some tooth decay was noted but overall, pt's dentition was WFL for her age. Pt also had white discoloration on her tongue but denied any discomfort; suspect this discoloration may be attributed to pt's complaint of xerostomia. Food and Liquid Trials Position During Assessment Upright (90 degrees) Liquids Trialed Thin,Pudding Solids Trialed Puree,Mechanical Soft,Regular Administration Type Tea spoon,Cup single sip,Self- feeding Oral Impairment Within normal limits Oral Phase Comments Pt took appropriate size sips and bites throughout the course of the assessment. Mastication was timely and no oral residue was noted in between bites. Pharyngeal Impairment Within normal limits Pharyngeal Phase Comments Swallow initiation was timely and pt demonstrated no overt signs of penetration/ aspiration. Pt reported feeling no residue following each swallow. Fatigue/Endurance Endurance WNL Comment Endurance was WNL for limited trials. Findings Swallowing Function Within normal limits Swallowing Function Comments Swallow WNL, no therapy required. Discharge from services. Severity of Swallow Impairment Within normal limits Comment Xerostomia may be a factor to thick phlegm and previous swallow challenges. Impact on Safety and Functioning No limitations Recommendations Swallowing Treatment No Recommended Solids Regular Recommended Liquids Thin Other Recommendations If coughing while eating and/ or sticking sensation while eating returns, MBSS may be warranted for further assessment. Recommend referral to ENT to address excessive phlegm, dizziness, and pt's request for cerumen removal. Medication Recommendations As Tolerated Referrals Recommended Referrals Otolaryngology/ENT Education Patient/Caregiver Education Described results of evaluation,Patient expressed understanding of evaluation
--- NOTE | 2021-12-04 15:36 | ST.OPDS ---
Visit Care Team Role Provider Type Michele Quinones MD Attending Provider Physician Family Provider Primary Care Provider Referring Provider Address: [address] [place] [address], [id number] SYSTEMS INTEGRATOR Treatment Note SYSTEMS INTEGRATOR Clinical Instructor Line Start: 12/04/21 15:12 Freq: Status: Active Protocol: Document 12/04/21 15:36 TAINA (Rec: 12/04/21 15:36 TAINA [id number]) Clinical Instructor Signature Clinical Instructor Clinical Instructor Yes SYSTEMS INTEGRATOR Treatment Note Start: 12/04/21 15:31 Freq: Status: Active Protocol: Document 12/04/21 15:32 EK (Rec: 12/04/21 15:32 EK [id number]) Speech Pathology Treatment Note Visit Information Plan of Care Dates 12/04/2021-01/04/2022 Insurance Information [facility] Setting Treatment Setting Outpatient Care Visit Type Note Type Discharge Summary General Information Patient History Pt is a 86-year-old female who lives alone in [place]. Several months ago, the pt experienced coughing and a sticking sensation while eating largely due to phlegm. This previously occurred regularly while eating. Pt reported these coughing episodes would cause her to sometimes cough up food pieces but primarily phlegm. Pt indicated that she has been using the strategy of small bites and eating at a slower rate. Pt also reported experiencing xerostomia, dry eyes, and dizziness. Subjective Identification Type Name,ID Card Identification Reconciled With Intake Sheet Others Present Additional Therapist Observations/Patient Presentation Swallow WNL, no therapy required. Discharge from services. Plan Therapy Recommendations Discharge from Speech Therapy
== END 2021-12-05 12:15 ==
LOC: SP 11:01
PROVIDERS: Family Provider Family Medicine; PCP Family Medicine; Referring Provider Family Medicine; Visit Provider Family Medicine
DX: R13.10 Dysphagia, unspecified (principal)
CPT/HCPCS: 92610

== ENCOUNTER → 2022-01-16 06:31 | Outpatient (CLI) | payer MEDICARE, SELFPAY ==
[2022-01-16 08:34] LABS: Hemoglobin 12.2 g/dL (12.0-16.0)
[2022-01-16 08:48] LABS: BUN Creatinine Ratio 15.3 (6-22); Blood Urea Nitrogen 11 mg/dL (7-17); Carbon Dioxide 29 mmol/L (22-32); Chloride 94 mmol/L (98-107); Estimated Glomerular Filt Rate > 60 mL/min (>60); Glucose 79 mg/dL (80-110); HEMOLYSIS < 15 (0-50); Potassium 4.3 mmol/L (3.4-5.1); Sodium 133 mmol/L (137-145)
== END ==
PROVIDERS: Family Provider Family Medicine; PCP Family Medicine; Referring Provider Family Medicine; Visit Provider Family Medicine
DX: I10 Essential (primary) hypertension (principal); D64.9 Anemia, unspecified
CPT/HCPCS: 36415; 80048; 85014; 85018

== ENCOUNTER 2023-08-31 11:19 | Emergency (ER) | payer MEDICARE, SELFPAY ==
[2023-08-31] VITALS (13 sets, daily range): BP systolic 137–243; BP diastolic 74–114; PULSE 66–107; RESP 18; TEMP 36.7; O2SAT 87–99; BMI 20.5
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
--- NOTE | 2023-08-31 11:48 | DI.CT.S_ITS ---
PROCEDURE: CT ABDOMEN PELVIS W CON INDICATIONS: L hip/flank pain, right side pain, fall x 2 this week TECHNIQUE: After the administration of intravenous contrast, axial sections acquired from the lung bases to the pubic symphysis. Coronal and sagittal reformats were performed. For radiation dose reduction, the following was used: automated exposure control, adjustment of mA and/or kV according to patient size. COMPARISON: None. FINDINGS: Lower thorax: The lung bases are clear. Heart size normal. Small hiatal hernia noted. Liver: Normal in size and attenuation. No contour deformity present. Biliary system: No calcified cholelithiasis or pericholecystic inflammation. No intra or extrahepatic bile duct dilatation. Pancreas: Unremarkable without mass or inflammation evident. Spleen: Normal in size and density. Adrenals: Normal morphology and density. Reproductive system: Hysterectomy. Urinary system: Moderate left hydronephrosis and hydroureter associated with a 9 x 6 mm calculus at the ureterovesical junction. Additional bilateral nonobstructing calculi measure 3 mm on the left and 2 mm on the right. No right hydronephrosis. Gastrointestinal system: The bowel is unremarkable without evidence of bowel obstruction or inflammation. The stomach appears unremarkable. Appendix: No findings to suggest acute appendicitis. Peritoneal spaces: No mesenteric or retroperitoneal adenopathy. No free air. No free fluid. Vasculature: The IVC, aorta and iliac vasculature are unremarkable. Abdominal wall: Abdominal wall intact without evidence of ventral or inguinal hernias. Musculoskeletal: Generalized decreased osseous mineralization present. Degenerative disc disease and arthropathy noted in lower lumbar spine. Old healed right-sided inferior pubic rami fracture. Wedge-shaped compression fractures noted involving T10, L1, L2 and L4. IMPRESSION: 1. Moderate left hydronephrosis and hydroureter associated with a 9 x 6 mm calculus at left ureterovesical junction 2. Multilevel osteopenic compression fractures and degenerative disc disease with arthropathy Approved by: Soy Ma M.D. on 08/31/2023 at 11:57
[2023-08-31 12:15] LABS: Add Manual Diff / Slide Review NO; Basophils Absolute Auto 0 /uL (0-100); Basophils Percent Auto 0.2 % (0-2); Eosinophils Absolute Auto 0 /uL (0-450); Eosinophils Percent Auto 0.6 % (2-4); Hematocrit 35.7 % (36-46); Hemoglobin 11.8 g/dL (12.0-16.0); Lymphocytes Absolute Auto 500 /uL (1100-4500); Mean Corpuscular HGB Conc 33.1 % (30-36); Mean Corpuscular Volume 90.6 fL (80-100); Monocytes Absolute Auto 500 /uL (0-900); Monocytes Percent Auto 6.1 % (3-14); Neutrophils Absolute Auto 6600 /uL (1500-7000); Neutrophils Percent Auto 86.1 % (50-75); Platelet Count 172 X10^3/uL (150-400); Red Blood Cell Count 3.94 X10^6/uL (4.0-5.2); Red Cell Distribution Width 13.4 % (11.6-14.8); White Blood Cell Count 7.7 X10^3/uL (4.5-11.0)
[2023-08-31 12:18] LABS: Bacteria Urine None Seen; RBC Urine 30-100/HPF (0-5/HPF); Squamous Epithelial Cell Urine 0-1 /HPF (0-5/HPF); Urine Volume 10mL (spun); WBC Urine 0-1/HPF (0-5/HPF)
[2023-08-31 12:19] LABS: Amorphous Sediment Urine 2+; Culture Indicated Urine Cult Not Indicated
[2023-08-31 12:23] LABS: Alanine Aminotransferase 10 IU/L (<35); Albumin Globulin Ratio 1.2 (1.0-2.8); Alkaline Phosphatase 80 U/L (38-126); Aspartate Aminotransferase 31 IU/L (14-36); BUN Creatinine Ratio 28.2 (6-22); Bilirubin Total 0.8 mg/dL (0.2-1.3); Blood Urea Nitrogen 20 mg/dL (7-17); Calcium 9.9 mg/dL (8.4-10.2); Carbon Dioxide 27 mmol/L (22-32); Chloride 109 mmol/L (98-107); Estimated Glomerular Filt Rate > 60 mL/min (>60); Globulin 3.3 g/dL (1.7-4.1); Glucose 96 mg/dL (80-110); HEMOLYSIS 22 (0-50); Lipase 51 U/L (23-300); Potassium 3.8 mmol/L (3.4-5.1); Sodium 142 mmol/L (137-145); Total Protein 7.3 g/dL (6.3-8.2)
[2023-08-31] MEDS: ACETAMINOPHEN 325 MG TABLET 975 MG PO (12:28)
[2023-08-31] MEDS: MORPHINE 2 MG/ML INJ IV (12:46)
[2023-08-31] MEDS: OXYCODONE/ACETAMINOPHEN 5/325 TABLET 1 TAB PO (14:05)
== END 2023-08-31 15:36 | disposition home or self-care (01) ==
PROVIDERS: Emergency Provider Emergency Medicine; Family Provider Family Medicine; PCP Family Medicine
DX: N20.0 Calculus of kidney (principal)
CPT/HCPCS: 36415; 74177; 80053; 81003; 81015; 83690; 85025; 96374; 99284; J2270; Q9967